=== PATIENT | male | born 1975 | race Caucasian/White ===

== ENCOUNTER 2021-09-12 14:01 | Inpatient (IN) ==
[2021-09-12] MEDS ORDERED: LABETALOL HCL IV 5 MG/ML 20ML IV STA ×3 (14:25→18:01)
--- NOTE | 2021-09-12 14:29 | Emergency Department Note ---
Impression & Plan Hematuria, Headache ADMIT ED Provider Note HPI: The patient is a 46-year-old gentleman who presents the emergency department with a chief complaint of dark urine. Patient states over the past 4 days he has had some dark urine and at times he has passed blood clots. Patient states he is also had a headache during this time, he states when he woke up this morning his headache was worse than it had been over the previous several days and was somewhat throbbing in nature. Patient states his headache is improved from this morning on arrival. Patient denies any fevers. Patient states he has not had any abdominal pain. Patient states that yesterday he did have several hours of left testicle pain that seem to come and go without any exacerbating or relieving factors. Patient states he does not have this pain on presentation today. On arrival the patient is hypertensive >220 SBP, heart rate is within normal limits, he is afebrile, patient denies any chest pain or shortness of breath, he is otherwise in no acute distress on my initial assessment. ROS: -: Hematuria, L testicle pain *10 point review systems was conducted and is otherwise negative unless stated above *Outpatient medications and allergy history reviewed PE: General: Alert, NAD HEENT: Normocephalic, atraumatic Eyes: Extraocular eye movement is intact, no scleral erythema Pulmonary: Clear to auscultation bilaterally, no wheezing Cardio: Regular rate and rhythm GI: Abdomen is soft, nontender : No suprapubic tenderness, there is no swelling of either testicle, external genitalia otherwise appear unremarkable without any lesions or ulcers MSK: No evidence of trauma or malformation of the extremities, no edema Skin: No evidence of rash Neuro: Alert, no focal deficits Psychiatric: Cooperative project manager interior design: - An order was placed for continuous cardiac monitoring - Patient was noted to be in sinus rhythm with rate of 90 EKG: Rate: 69 Rhythm: Normal sinus rhythm Intervals: Within normal limits ST changes: No ST elevation Time: 1830 Medical Decision Making: Patient presented to the emergency department with multiple issues, he states over the past several days he has had some blood in his urine, patient also states that he has had a headache during the same period of time. On arrival here to the ED the patient is noted to be significantly hypertensive with systolic blood pressures in the 230s, he denies any chest pain or shortness of breath, states he does have a mild headache but is improved from the morning, he otherwise appears in no acute distress. IV was established, lab work obtained, patient was placed on freezer unloader, patient did not have much improvement in his hypertension with IV labetalol or IV hydralazine. Lab work was obtained that does not show any evidence of acute kidney injury, patient's troponin was obtained secondary to his hypertension despite the fact that he is not having any chest pain or shortness of breath and this is elevated at 75. On my reassessment the patient states his headache is improved following Reglan and Benadryl, CT angio of the head does not show any evidence of intracranial bleeding, no evidence of aneurysm. CT imaging of the abdomen pelvis was obtained for the patient's hematuria and does show some bladder wall thickening but no evidence of any obstruction or hydronephrosis. Patient was ordered a dose of Keflex here in the ED. Given the patient's ongoing hypertension and elevated troponin he was eventually placed on a nicardipine drip as his blood pressure remained elevated at 212/149 on reassessment. He states his headache is improved and overall he is generally asymptomatic however his pressures remain elevated and his troponin is high constituting admission for hypertensive emergency. Patient was in agreement to this plan. Nicardipine drip was ordered. [facility] hospitalist service was consulted for admission and the patient was admitted in stable condition. * CRITICAL CARE TIME: ( 65 ) minutes -Treatment for hypertensive emergency requiring IV nicardipine for elevated blood pressures greater than 230 systolic and elevated troponin/evidence of end- organ damage, interpretation of diagnostic studies and EKG, arrangement of admission Diagnosis: 1. Hypertensive emergency 2. Elevated troponin 3. Headache, nonspecific, non-intractable 4. Hematuria 5. Left testicle pain, transient Disposition: Admission Bk Garcia DO Emergency Medicine Past Med/Surg History Social History Smoking Status: Never smoker Feels Safe at Home: Yes Home Meds Home Medications Medication Instructions Recorded Confirmed amlodipine 10 mg tablet 10 mg PO DAILY 09/12/21 09/12/21 metoprolol succinate 100 mg 100 mg PO DAILY 09/12/21 09/12/21 tablet,extended release 24 hr Previous Rx's Medication Instructions Recorded cephalexin 500 mg capsule 500 mg PO BID 7 days #14 caps 09/12/21 Results & Data (ED) Vital Signs Vital Signs - 24 hr 09/12/21 14:15 09/12/21 15:31 09/12/21 15:44 Temperature 36.5 C Temperature Source Temporal Artery Scan Pulse Rate 91 H Pulse Rate [Apical] 79 Pulse Rate from SpO2 Sensor Pulse Rhythm [Apical] Regular Pulse Strength [Apical] Normal Respiratory Rate 15 18 Respiratory Effort / Characteristics Non-Labored Respiratory Depth Normal Respiratory Pattern Blood Pressure 220/161 H Blood Pressure [Right Arm] 227/149 H 230/69 H Blood Pressure Mean 180 Blood Pressure Mean [Right Arm] 175 122 Blood Pressure Position [Right Arm] Pulse Oximetry 98 98 Oxygen Delivery Method Room Air Room Air Sepsis Recent Fever Within 48 Hours No Sepsis New/Unexplained Change in Mental Status No Sepsis Action Taken by Nursing No Action Required 09/12/21 17:27 09/12/21 17:27 09/12/21 18:00 Temperature Temperature Source Pulse Rate 69 Pulse Rate [Apical] 69 67 Pulse Rate from SpO2 Sensor Pulse Rhythm [Apical] Regular Pulse Strength [Apical] Normal Respiratory Rate 18 18 20 Respiratory Effort / Characteristics Non-Labored Non-Labored Respiratory Depth Normal Normal Respiratory Pattern Regular Blood Pressure Blood Pressure [Right Arm] 229/169 H 231/144 H Blood Pressure Mean Blood Pressure Mean [Right Arm] 189 173 Blood Pressure Position [Right Arm] Lying Lying Pulse Oximetry 97 97 97 Oxygen Delivery Method Room Air Room Air Room Air Sepsis Recent Fever Within 48 Hours Sepsis New/Unexplained Change in Mental Status Sepsis Action Taken by Nursing 09/12/21 15:00 09/12/21 15:10 09/12/21 15:20 Temperature Temperature Source Pulse Rate 95 H 93 H 87 Pulse Rate [Apical] Pulse Rate from SpO2 Sensor 96 H 94 H Pulse Rhythm [Apical] Pulse Strength [Apical] Respiratory Rate 23 20 23 Respiratory Effort / Characteristics Respiratory Depth Respiratory Pattern Blood Pressure Blood Pressure [Right Arm] Blood Pressure Mean Blood Pressure Mean [Right Arm] Blood Pressure Position [Right Arm] Pulse Oximetry 99 94 Oxygen Delivery Method Sepsis Recent Fever Within 48 Hours Sepsis New/Unexplained Change in Mental Status Sepsis Action Taken by Nursing 09/12/21 15:41 09/12/21 15:41 09/12/21 15:42 Temperature Temperature Source Pulse Rate 82 Pulse Rate [Apical] Pulse Rate from SpO2 Sensor 82 Pulse Rhythm [Apical] Pulse Strength [Apical] Respiratory Rate 24 Respiratory Effort / Characteristics Respiratory Depth Respiratory Pattern Blood Pressure 230/169 H 229/161 H Blood Pressure [Right Arm] Blood Pressure Mean 189 183 Blood Pressure Mean [Right Arm] Blood Pressure Position [Right Arm] Pulse Oximetry 98 Oxygen Delivery Method Sepsis Recent Fever Within 48 Hours Sepsis New/Unexplained Change in Mental Status Sepsis Action Taken by Nursing 09/12/21 15:42 09/12/21 15:50 09/12/21 15:50 Temperature Temperature Source Pulse Rate 81 81 Pulse Rate [Apical] Pulse Rate from SpO2 Sensor 81 81 Pulse Rhythm [Apical] Pulse Strength [Apical] Respiratory Rate 25 H 23 Respiratory Effort / Characteristics Respiratory Depth Respiratory Pattern Blood Pressure 220/158 H Blood Pressure [Right Arm] Blood Pressure Mean 178 Blood Pressure Mean [Right Arm] Blood Pressure Position [Right Arm] Pulse Oximetry 98 97 Oxygen Delivery Method Sepsis Recent Fever Within 48 Hours Sepsis New/Unexplained Change in Mental Status Sepsis Action Taken by Nursing 09/12/21 16:00 09/12/21 16:10 09/12/21 16:10 Temperature Temperature Source Pulse Rate 72 73 Pulse Rate [Apical] Pulse Rate from SpO2 Sensor 73 74 Pulse Rhythm [Apical] Pulse Strength [Apical] Respiratory Rate 19 20 Respiratory Effort / Characteristics Respiratory Depth Respiratory Pattern Blood Pressure 223/159 H Blood Pressure [Right Arm] Blood Pressure Mean 180 Blood Pressure Mean [Right Arm] Blood Pressure Position [Right Arm] Pulse Oximetry 97 97 Oxygen Delivery Method Sepsis Recent Fever Within 48 Hours Sepsis New/Unexplained Change in Mental Status Sepsis Action Taken by Nursing 09/12/21 16:20 09/12/21 16:20 09/12/21 16:30 Temperature Temperature Source Pulse Rate 78 Pulse Rate [Apical] Pulse Rate from SpO2 Sensor 78 Pulse Rhythm [Apical] Pulse Strength [Apical] Respiratory Rate 21 Respiratory Effort / Characteristics Respiratory Depth Respiratory Pattern Blood Pressure 223/169 H 218/148 H Blood Pressure [Right Arm] Blood Pressure Mean 187 171 Blood Pressure Mean [Right Arm] Blood Pressure Position [Right Arm] Pulse Oximetry 97 Oxygen Delivery Method Sepsis Recent Fever Within 48 Hours Sepsis New/Unexplained Change in Mental Status Sepsis Action Taken by Nursing 09/12/21 16:30 09/12/21 17:18 09/12/21 17:19 Temperature Temperature Source Pulse Rate 75 79 77 Pulse Rate [Apical] Pulse Rate from SpO2 Sensor 75 78 Pulse Rhythm [Apical] Pulse Strength [Apical] Respiratory Rate 17 28 H 25 H Respiratory Effort / Characteristics Respiratory Depth Respiratory Pattern Blood Pressure Blood Pressure [Right Arm] Blood Pressure Mean Blood Pressure Mean [Right Arm] Blood Pressure Position [Right Arm] Pulse Oximetry 95 95 Oxygen Delivery Method Sepsis Recent Fever Within 48 Hours Sepsis New/Unexplained Change in Mental Status Sepsis Action Taken by Nursing 09/12/21 17:19 09/12/21 17:20 09/12/21 17:30 Temperature Temperature Source Pulse Rate 78 71 Pulse Rate [Apical] Pulse Rate from SpO2 Sensor 78 72 Pulse Rhythm [Apical] Pulse Strength [Apical] Respiratory Rate 21 21 Respiratory Effort / Characteristics Respiratory Depth Respiratory Pattern Blood Pressure 229/169 H Blood Pressure [Right Arm] Blood Pressure Mean 189 Blood Pressure Mean [Right Arm] Blood Pressure Position [Right Arm] Pulse Oximetry 97 96 Oxygen Delivery Method Sepsis Recent Fever Within 48 Hours Sepsis New/Unexplained Change in Mental Status Sepsis Action Taken by Nursing 09/12/21 17:40 09/12/21 17:45 09/12/21 17:45 Temperature Temperature Source Pulse Rate 69 72 Pulse Rate [Apical] Pulse Rate from SpO2 Sensor 66 73 Pulse Rhythm [Apical] Pulse Strength [Apical] Respiratory Rate 18 17 Respiratory Effort / Characteristics Respiratory Depth Respiratory Pattern Blood Pressure 246/140 H Blood Pressure [Right Arm] Blood Pressure Mean 175 Blood Pressure Mean [Right Arm] Blood Pressure Position [Right Arm] Pulse Oximetry 98 97 Oxygen Delivery Method Sepsis Recent Fever Within 48 Hours Sepsis New/Unexplained Change in Mental Status Sepsis Action Taken by Nursing 09/12/21 17:50 09/12/21 18:00 09/12/21 18:00 Temperature Temperature Source Pulse Rate 63 74 Pulse Rate [Apical] Pulse Rate from SpO2 Sensor 69 Pulse Rhythm [Apical] Pulse Strength [Apical] Respiratory Rate 19 21 Respiratory Effort / Characteristics Respiratory Depth Respiratory Pattern Blood Pressure 217/141 H Blood Pressure [Right Arm] Blood Pressure Mean 166 Blood Pressure Mean [Right Arm] Blood Pressure Position [Right Arm] Pulse Oximetry 87 L Oxygen Delivery Method Sepsis Recent Fever Within 48 Hours Sepsis New/Unexplained Change in Mental Status Sepsis Action Taken by Nursing 09/12/21 18:10 09/12/21 18:15 09/12/21 18:15 Temperature Temperature Source Pulse Rate 62 77 Pulse Rate [Apical] Pulse Rate from SpO2 Sensor Pulse Rhythm [Apical] Pulse Strength [Apical] Respiratory Rate 16 12 Respiratory Effort / Characteristics Respiratory Depth Respiratory Pattern Blood Pressure 231/144 H Blood Pressure [Right Arm] Blood Pressure Mean 173 Blood Pressure Mean [Right Arm] Blood Pressure Position [Right Arm] Pulse Oximetry Oxygen Delivery Method Sepsis Recent Fever Within 48 Hours Sepsis New/Unexplained Change in Mental Status Sepsis Action Taken by Nursing 09/12/21 18:20 09/12/21 18:30 09/12/21 18:30 Temperature Temperature Source Pulse Rate 73 67 Pulse Rate [Apical] Pulse Rate from SpO2 Sensor 71 Pulse Rhythm [Apical] Pulse Strength [Apical] Respiratory Rate 14 22 Respiratory Effort / Characteristics Respiratory Depth Respiratory Pattern Blood Pressure 203/144 H Blood Pressure [Right Arm] Blood Pressure Mean 163 Blood Pressure Mean [Right Arm] Blood Pressure Position [Right Arm] Pulse Oximetry 97 Oxygen Delivery Method Sepsis Recent Fever Within 48 Hours Sepsis New/Unexplained Change in Mental Status Sepsis Action Taken by Nursing 09/12/21 18:40 09/12/21 18:45 09/12/21 18:45 Temperature Temperature Source Pulse Rate 72 82 Pulse Rate [Apical] Pulse Rate from SpO2 Sensor 69 Pulse Rhythm [Apical] Pulse Strength [Apical] Respiratory Rate 16 15 Respiratory Effort / Characteristics Respiratory Depth Respiratory Pattern Blood Pressure 211/149 H Blood Pressure [Right Arm] Blood Pressure Mean 169 Blood Pressure Mean [Right Arm] Blood Pressure Position [Right Arm] Pulse Oximetry 96 Oxygen Delivery Method Sepsis Recent Fever Within 48 Hours Sepsis New/Unexplained Change in Mental Status Sepsis Action Taken by Nursing 09/12/21 18:50 09/12/21 19:00 09/12/21 19:00 Temperature Temperature Source Pulse Rate 61 73 Pulse Rate [Apical] Pulse Rate from SpO2 Sensor 62 Pulse Rhythm [Apical] Pulse Strength [Apical] Respiratory Rate 18 18 Respiratory Effort / Characteristics Respiratory Depth Respiratory Pattern Blood Pressure 217/149 H Blood Pressure [Right Arm] Blood Pressure Mean 171 Blood Pressure Mean [Right Arm] Blood Pressure Position [Right Arm] Pulse Oximetry 99 Oxygen Delivery Method Sepsis Recent Fever Within 48 Hours Sepsis New/Unexplained Change in Mental Status Sepsis Action Taken by Nursing 09/12/21 19:10 09/12/21 19:15 09/12/21 19:15 Temperature Temperature Source Pulse Rate 65 68 Pulse Rate [Apical] Pulse Rate from SpO2 Sensor Pulse Rhythm [Apical] Pulse Strength [Apical] Respiratory Rate 17 11 L Respiratory Effort / Characteristics Respiratory Depth Respiratory Pattern Blood Pressure 210/149 H Blood Pressure [Right Arm] Blood Pressure Mean 169 Blood Pressure Mean [Right Arm] Blood Pressure Position [Right Arm] Pulse Oximetry Oxygen Delivery Method Sepsis Recent Fever Within 48 Hours Sepsis New/Unexplained Change in Mental Status Sepsis Action Taken by Nursing 09/12/21 19:20 09/12/21 19:20 Temperature Temperature Source Pulse Rate 71 Pulse Rate [Apical] Pulse Rate from SpO2 Sensor Pulse Rhythm [Apical] Pulse Strength [Apical] Respiratory Rate 20 Respiratory Effort / Characteristics Respiratory Depth Respiratory Pattern Blood Pressure 212/149 H Blood Pressure [Right Arm] Blood Pressure Mean 170 Blood Pressure Mean [Right Arm] Blood Pressure Position [Right Arm] Pulse Oximetry Oxygen Delivery Method Sepsis Recent Fever Within 48 Hours Sepsis New/Unexplained Change in Mental Status Sepsis Action Taken by Nursing Laboratory Data Result diagrams: 09/12/21 15:15 09/12/21 15:15 Lab Results 09/12/21 09/12/21 09/12/21 Range/Units 15:15 15:15 15:15 WBC 9.96 (4.8-10.8) K/ul RBC 5.75 (4.63-6.08) M/uL Hgb 15.7 (14.0-18.0) g/dl Hct 46.8 (40.1-51.0) % MCV 81.4 (80.0-100.0) fL MCH 27.3 (25.0-34.0) pg MCHC 33.5 (32.0-36.0) g/dL RDW Std Deviation 40.9 (36.4-46.3) fL RDW Coeff of Ish 14.2 (11.5-14.5) % Plt Count 210 (130-400) K/uL MPV 9.9 (9.4-12.4) fL Immature Gran % (Auto) 0.3 % Neut % (Auto) 68.2 % Lymph % (Auto) 23.1 % [place] % (Auto) 6.0 % Eos % (Auto) 1.9 % Baso % (Auto) 0.5 % Neut # (Auto) 6.79 H (1.4-6.5) K/uL Lymph # (Auto) 2.30 (1.2-3.4) K/uL [place] # (Auto) 0.60 (0.24-0.82) K/uL Eos # (Auto) 0.19 (0-0.50) K/uL Baso # (Auto) 0.05 (0-0.2) K/uL Immature Gran # (Auto) 0.03 H (0.00-0.02) K/uL Sodium 137 (136-145) mmol/L Potassium 3.2 L (3.5-5.1) mmol/L Chloride 101 (98-107) mmol/L Carbon Dioxide 30 (21-32) mmol/L Anion Gap 6 (3-11) BUN 9 (6-23) mg/dl Creatinine 0.80 (0.6-1.4) mg/dl Est Cr Clr Drug Dosing 159.8 ml/min Est GFR ( Amer) 122.4 ml/min Est GFR (Non-Af Amer) 105.6 ml/min BUN/Creatinine Ratio 11.3 (10-20) Glucose 149 H (70-99(Fasting)) mg/dl Calcium 8.7 (8.5-10.1) mg/dl Total Bilirubin 0.6 (0.2-1.0) mg/dl AST 17 (13-39) U/L ALT 15 (7-52) U/L Alkaline Phosphatase 92 (34-104) U/L Troponin I High Sens 75.7 H* (0-20) pg/ml Total Protein 7.4 (6.0-8.3) gm/dl Albumin 3.9 (3.4-5.0) gm/dl Globulin 3.5 (2.5-4.0) gm/dl Albumin/Globulin Ratio 1.1 (0.9-2) Lipase 31 (11-82) U/L Urine Color Urine Appearance (Clear) Urine pH (4.5-7.5) Ur Specific [place] (1.000-1.030) Urine Protein (Negative) Urine Glucose (UA) (Negative) Urine Ketones (Negative) Urine Blood (Negative) Urine Nitrite (Negative) Urine Bilirubin (Negative) Urine Urobilinogen (Negative) Ur Leukocyte Esterase (Negative) Urine WBC (Auto) (0-5) /hpf Urine RBC (Auto) (0-4) /hpf U Hyaline Cast (Auto) (0-5) /lpf U Epithel Cells (Auto) (0-5) /lpf Urine Bacteria (Auto) (Negative) 09/12/21 Range/Units 15:25 WBC (4.8-10.8) K/ul RBC (4.63-6.08) M/uL Hgb (14.0-18.0) g/dl Hct (40.1-51.0) % MCV (80.0-100.0) fL MCH (25.0-34.0) pg MCHC (32.0-36.0) g/dL RDW Std Deviation (36.4-46.3) fL RDW Coeff of Ish (11.5-14.5) % Plt Count (130-400) K/uL MPV (9.4-12.4) fL Immature Gran % (Auto) % Neut % (Auto) % Lymph % (Auto) % [place] % (Auto) % Eos % (Auto) % Baso % (Auto) % Neut # (Auto) (1.4-6.5) K/uL Lymph # (Auto) (1.2-3.4) K/uL [place] # (Auto) (0.24-0.82) K/uL Eos # (Auto) (0-0.50) K/uL Baso # (Auto) (0-0.2) K/uL Immature Gran # (Auto) (0.00-0.02) K/uL Sodium (136-145) mmol/L Potassium (3.5-5.1) mmol/L Chloride (98-107) mmol/L Carbon Dioxide (21-32) mmol/L Anion Gap (3-11) BUN (6-23) mg/dl Creatinine (0.6-1.4) mg/dl Est Cr Clr Drug Dosing ml/min Est GFR ( Amer) ml/min Est GFR (Non-Af Amer) ml/min BUN/Creatinine Ratio (10-20) Glucose (70-99(Fasting)) mg/dl Calcium (8.5-10.1) mg/dl Total Bilirubin (0.2-1.0) mg/dl AST (13-39) U/L ALT (7-52) U/L Alkaline Phosphatase (34-104) U/L Troponin I High Sens (0-20) pg/ml Total Protein (6.0-8.3) gm/dl Albumin (3.4-5.0) gm/dl Globulin (2.5-4.0) gm/dl Albumin/Globulin Ratio (0.9-2) Lipase (11-82) U/L Urine Color [place] Urine Appearance Clear (Clear) Urine pH 6.5 (4.5-7.5) Ur Specific [place] 1.007 (1.000-1.030) Urine Protein 2+ H (Negative) Urine Glucose (UA) Negative (Negative) Urine Ketones Negative (Negative) Urine Blood 3+ H (Negative) Urine Nitrite Negative (Negative) Urine Bilirubin Negative (Negative) Urine Urobilinogen Negative (Negative) Ur Leukocyte Esterase Trace H (Negative) Urine WBC (Auto) 1-5 (0-5) /hpf Urine RBC (Auto) >30 H (0-4) /hpf U Hyaline Cast (Auto) 1-5 (0-5) /lpf U Epithel Cells (Auto) 5-10 H (0-5) /lpf Urine Bacteria (Auto) Negative (Negative) Administered Medications Nicardipine HCl 25 mg/ Sodium (Chloride) 250 mls @ 50 mls/hr IV .Q5H [facility]; Protocol Stop: 10/12/21 18:59 Last Admin: 09/12/21 19:16 Dose: 5 mg/hr, 50 mls/hr Documented By: CLAUDIA Co-signed By: Discontinued Medications Diphenhydramine HCl (Diphenhydramine 50 Mg/Ml Vial) 25 mg IV NOW STA Stop: 09/12/21 16:22 Last Admin: 09/12/21 17:20 Dose: 25 mg Documented By: ROZ Hydralazine HCl (Hydralazine Hcl 20 Mg/Ml Vial) 10 mg IV NOW STA Stop: 09/12/21 16:32 Last Admin: 09/12/21 17:24 Dose: 10 mg Documented By: ROZ Sodium Chloride (Nss 1000ml) 500 mls @ 999 mls/hr IV .Q31M ONE Stop: 09/12/21 16:52 Last Infusion: 09/12/21 18:09 Dose: 0 mls/hr Documented By: Admin: 09/12/21 17:24 Dose: 999 mls/hr Documented By: ROZ Ioversol (Optiray 320 125ml) 118 ml IV ONCE ONE Stop: 09/12/21 16:54 Last Admin: 09/12/21 16:57 Dose: 118 ml Documented By: YG Labetalol HCl (Labetalol Hcl Iv 5 Mg/Ml 20ml) 10 mg IV NOW STA Stop: 09/12/21 14:26 Last Admin: 09/12/21 15:29 Dose: 10 mg Documented By: ASW Co-signed By: GRAHAM Labetalol HCl (Labetalol Hcl Iv 5 Mg/Ml 20ml) 10 mg IV NOW STA Stop: 09/12/21 16:05 Last Admin: 09/12/21 16:08 Dose: Not Given Documented By: ROZ Labetalol HCl (Labetalol Hcl Iv 5 Mg/Ml 20ml) 10 mg IV NOW STA Stop: 09/12/21 18:02 Last Admin: 09/12/21 18:17 Dose: 10 mg Documented By: ROZ Co-signed By: GRAHAM Metoclopramide HCl (Metoclopramide Hcl Inj 5 Mg/Ml 2 Ml Vial) 10 mg IV NOW STA Stop: 09/12/21 16:22 Last Admin: 09/12/21 17:22 Dose: 10 mg Documented By: ROZ Potassium Chloride (Potassium Chloride Crtab 20 Meq Tabcr) 40 meq PO NOW STA Stop: 09/12/21 18:07 Last Admin: 09/12/21 18:18 Dose: 40 meq Documented By: ROZ Imaging Data Radiologist's Impression: Abdomen/Pelvis CT 09/12/21 14:25 CT SCAN OF THE ABDOMEN AND PELVIS WITHOUT IV CONTRAST CLINICAL HISTORY: Hematuria. COMPARISON STUDY: No priors. TECHNIQUE: CT scan of the abdomen and pelvis is performed from the lung bases to the proximal femora. Images are reviewed in the axial, sagittal, and coronal planes. IV contrast was not administered for this examination. A dose lowering technique was utilized adhering to the principles of ALARA. CT DOSE: 1638.60 mGy.cm FINDINGS: Lung bases: The heart is normal in size and without pericardial effusion. There are small bilateral fat-containing Bochdalek hernias. The lung bases are clear. There is a small hiatal hernia. Liver: The unenhanced liver is top normal in size and demonstrates diffusely diminished attenuation indicating steatosis. Fatty sparing is seen adjacent to gallbladder fossa. There is no intrahepatic biliary ductal dilatation. Gallbladder: Unremarkable. Spleen: The spleen is enlarged measuring 15.6 cm in length. A 2.7 cm peripherally calcified cyst is noted in the anterior spleen. Pancreas: Unremarkable. Adrenal glands: Unremarkable. Kidneys: The unenhanced kidneys are normal in size and without hydronephrosis. There are no renal calculi identified. There is no evidence of contour deforming renal mass lesion. Abdominal vasculature: The abdominal aorta is normal in course and caliber. Bowel: There is no bowel obstruction. Mild fecal retention is seen throughout the colon. The appendix is well-visualized and normal. Peritoneum: There is no intraperitoneal free air or abdominal ascites. There is a small fat-containing umbilical hernia. Lymphadenopathy: None. Pelvic viscera: The bladder is decompressed and appears circumferentially thick walled. The prostate and seminal vesicles are normal as visualized. Skeletal structures: No lytic or blastic lesions are seen. Mild degenerative change is noted in the sacroiliac joints. There is a posterior disc osteophyte complex at L5-S1. IMPRESSION: 1. The bladder is decompressed and appears circumferentially thick walled. Correlate with clinical findings and urinalysis. 2. Mild hepatic steatosis. 3. Splenomegaly. 4. No renal calculi are identified. 5. Additional findings as above. Noted in the sacroiliac joints. ACT 112: Negative or not required by law. Electronically signed by: Zacarias Pike M.D. 09/12/2021 3:53 PM Scrotum Ultrasound 09/12/21 14:26 ULTRASOUND TESTES AND SCROTUM CLINICAL HISTORY: Left testicular pain COMPARISON STUDY: No priors. TECHNIQUE: Real-time, grayscale, and color Doppler sonography of the testes and scrotum is performed. Images are reviewed in the transverse and longitudinal planes. FINDINGS: The testes are normal in size and homogeneous in echotexture. The right testis measures 3.9 x 2.2 x 2.7 cm and the left testis measures 4.0 x 2.1 x 2.9 cm. A tiny calcification of the tunica is incidentally noted on the right. No intratesticular mass is seen. Testicular blood flow is normal and symmetric. Normal Doppler waveforms are identified in both testes. The epididymal heads are normal in appearance. The right epididymal head measures 1.3 cm in length and the left epididymal head measures 1.1 cm in length. There are trace bilateral hydroceles. No varicocele is seen. IMPRESSION: 1. Unremarkable sonographic examination of the testes. 2. Trace bilateral hydroceles. ACT 112: Negative or not required by law. Electronically signed by: Zacarias Pike M.D. 09/12/2021 5:18 PM Head CTA 09/12/21 16:45 CT ANGIOGRAM OF THE BRAIN COMBO CLINICAL HISTORY: Headache COMPARISON STUDY: No priors. TECHNIQUE: Unenhanced axial CT scan of the brain is performed. Subsequently, following the IV administration of 118 cc of Optiray 320, CT angiogram of the brain was performed from the skull base to the vertex. Images are reviewed in the axial, sagittal, and coronal planes. 3-D MIPS images are created and assessed. IV contrast was administered without complication. A dose lowering technique was utilized adhering to the principles of ALARA. CT DOSE: 673.96 mGy.cm FINDINGS: Brain parenchyma: Scattered hypoattenuating foci throughout the white matter likely represent microangiopathic change. There is no hemorrhage, mass effect, or evidence of acute territorial ischemia by CT criteria. There is no evidence of enhancing mass lesion on the angiogram phase images. No extra-axial fluid collection is seen. [place]-white matter differentiation is preserved. Ventricles, sulci, and cisterns: Normal in configuration. CT angiogram of the brain: The [place] is developmentally complete. The internal carotid arteries are widely patent, as are the anterior and middle cerebral arteries. The vertebrobasilar system and posterior cerebral arteries are widely patent. The left vertebral artery is dominant. The right vertebral artery is diminutive. There is no aneurysm, high-grade stenosis, or focal vessel cutoff identified throughout the intracranial circulation. Dural sinuses: Clear as visualized. Orbits: The bony orbits are intact. The orbital contents are normal as visualized. Sinuses and mastoids: There is subtotal opacification of the right sphenoid sinus which may represent a large retention cyst. A 1.5 cm retention cyst is noted in the left maxillary antrum. There is trace mucosal thickening in the right maxillary sinus. The mastoid air cells are well pneumatized. Calvarium: Unremarkable. IMPRESSION: 1 There is no hemorrhage, mass effect, or evidence of acute territorial ischemia by CT criteria. 2. Scattered hypoattenuating foci throughout the white matter likely represent age advanced microangiopathic change. Clinical correlation will be required. 3. Unremarkable CT angiogram of the brain. ACT 112: Negative or not required by law. Electronically signed by: Zacarias Pike M.D. 09/12/2021 5:16 PM Discharge Plan Visit Data Chief Complaint: Hematuria Stated Complaint: BLOOD IN URINE, Headache ED Provider: Bk Garcia Discharge Problem: Hematuria, Headache Patient Disposition: Home - Self-Care Condition: Good Discharge Instructions Fabio/Other Patient Handouts: ED Headache, Tension, ED Hematuria Activity Restrictions/Additional Instructions: Please follow-up with your primary care doctor in 2 to 3 days for reevaluation. Please follow-up with urology as advised within the next 3 to 5 days. Please return immediately to the emergency department if you have any new or worsening symptoms. Please take your antibiotics as prescribed. Forms Stand Alone Forms: My [facility], [facility] Emergency Department, Important Visit Information Prescriptions Prescriptions: New cephalexin 500 mg capsule 500 mg PO BID 7 Days Qty: 14 0RF No Action metoprolol succinate 100 mg tablet extended release 24 hr 100 mg PO DAILY amlodipine 10 mg tablet 10 mg PO DAILY Referrals Referrals: Chi Chowdhury MD [Physician] - PCP,NO [Primary Care Provider] - : Hematuria Qualifiers: Hematuria type: unspecified type Qualified Code(s): R31.9 - Hematuria, unspecified Headache Qualifiers: Headache type: unspecified Headache chronicity pattern: unspecified pattern Intractability: not intractable Qualified Code(s): R51.9 - Headache, unspecified
[2021-09-12 15:34] LABS: Basophils # (auto) 0.05 K/uL (0-0.2); Basophils % (auto) 0.5 %; Eosinophils # (auto) 0.19 K/uL (0-0.50); Eosinophils % (auto) 1.9 %; Hematocrit (blood only) 46.8 % (40.1-51.0); Hemoglobin 15.7 g/dl (14.0-18.0); Immature Granulocytes # (auto) 0.03 K/uL (0.00-0.02); Immature Granulocytes % (auto) 0.3 %; Lymphocytes % (auto) 23.1 %; Mean Corpuscular Hemoglobin 27.3 pg (25.0-34.0); Mean Corpuscular Hgb Conc 33.5 g/dL (32.0-36.0); Mean Corpuscular Volume 81.4 fL (80.0-100.0); Mean Platelet Volume 9.9 fL (9.4-12.4); Neutrophils # (auto) 6.79 K/uL (1.4-6.5); Neutrophils % (auto) 68.2 %; Platelet Count 210 K/uL (130-400); RDW Coefficient of Variation 14.2 % (11.5-14.5); RDW Standard Deviation 40.9 fL (36.4-46.3); Red Blood Count 5.75 M/uL (4.63-6.08); White Blood Count 9.96 K/ul (4.8-10.8)
[2021-09-12 15:38] LABS: Appearance Urine Clear (Clear); Bacteria Urine Automated Negative (Negative); Bilirubin Urine Negative (Negative); Blood Urine 3+ (Negative); Color Urine Orange; Glucose Urine UA Negative (Negative); Ketones Urine Negative (Negative); Leukocyte Esterase Urine Trace (Negative); Nitrite Urine Negative (Negative); Protein Urine 2+ (Negative); RBC Urine Automated >30 /hpf (0-4); Specific Gravity Urine 1.007 (1.000-1.030); Urobilinogen Urine Negative (Negative); pH Urine 6.5 (4.5-7.5)
[2021-09-12 15:53] LABS: Albumin Globulin Ratio 1.1 (0.9-2); Albumin Level 3.9 gm/dl (3.4-5.0); BUN Creatinine Ratio 11.3 (10-20); Bilirubin,Total 0.6 mg/dl (0.2-1.0); Calcium 8.7 mg/dl (8.5-10.1); Creatinine Clr Calc Pharmacy 159.8 ml/min; Est GFR (African American) 122.4 ml/min; Est GFR (Non-African American) 105.6 ml/min; Globulin 3.5 gm/dl (2.5-4.0); Potassium 3.2 mmol/L (3.5-5.1); Total Protein 7.4 gm/dl (6.0-8.3)
--- NOTE | 2021-09-12 15:55 | CT Scan Report ---
CT SCAN OF THE ABDOMEN AND PELVIS WITHOUT IV CONTRAST CLINICAL HISTORY: Hematuria. COMPARISON STUDY: No priors. TECHNIQUE: CT scan of the abdomen and pelvis is performed from the lung bases to the proximal femora. Images are reviewed in the axial, sagittal, and coronal planes. IV contrast was not administered for this examination. A dose lowering technique was utilized adhering to the principles of ALARA. CT DOSE: 1638.60 mGy.cm FINDINGS: Lung bases: The heart is normal in size and without pericardial effusion. There are small bilateral f at-containing Bochdalek hernias. The lung bases are clear. There is a small hiatal hernia. Liver: The unenhanced liver is top normal in size and demonstrates diffusely diminished attenuation i ndicating steatosis. Fatty sparing is seen adjacent to gallbladder fossa. There is no intrahepatic bi liary ductal dilatation. Gallbladder: Unremarkable. Spleen: The spleen is enlarged measuring 15.6 cm in length. A 2.7 cm peripherally calcified cyst is n oted in the anterior spleen. Pancreas: Unremarkable. Adrenal glands: Unremarkable. Kidneys: The unenhanced kidneys are normal in size and without hydronephrosis. There are no renal rosa isela culi identified. There is no evidence of contour deforming renal mass lesion. Abdominal vasculature: The abdominal aorta is normal in course and caliber. Bowel: There is no bowel obstruction. Mild fecal retention is seen throughout the colon. The appendix is well-visualized and normal. Peritoneum: There is no intraperitoneal free air or abdominal ascites. There is a small fat-containin g umbilical hernia. Lymphadenopathy: None. Pelvic viscera: The bladder is decompressed and appears circumferentially thick walled. The prostate and seminal vesicles are normal as visualized. Skeletal structures: No lytic or blastic lesions are seen. Mild degenerative change is noted in the s acroiliac joints. There is a posterior disc osteophyte complex at L5-S1. IMPRESSION: 1. The bladder is decompressed and appears circumferentially thick walled. Correlate with clinical fi ndings and urinalysis. 2. Mild hepatic steatosis. 3. Splenomegaly. 4. No renal calculi are identified. 5. Additional findings as above. Noted in the sacroiliac joints. ACT 112: Negative or not required by law. Electronically signed by: Zacarias Pike M.D. 09/12/2021 3:53 PM
[2021-09-12] MEDS ORDERED: METOCLOPRAMIDE HCL INJ 5 MG/ML 2 ML VIAL IV STA (16:21)
[2021-09-12] MEDS ORDERED: diphenhydrAMINE 50 MG/ML VIAL IV STA (16:21)
[2021-09-12] MEDS ORDERED: SODIUM CHLORIDE 0.9% 1000ML 500 ML IV ONE (16:22)
[2021-09-12] MEDS ORDERED: hydrALAZINE HCL 20 MG/ML VIAL IV STA (16:31)
[2021-09-12] MEDS ORDERED: OPTIRAY 320 125ml IV ONE (16:53)
--- NOTE | 2021-09-12 17:19 | CT Scan Report ---
CT ANGIOGRAM OF THE BRAIN COMBO CLINICAL HISTORY: Headache COMPARISON STUDY: No priors. TECHNIQUE: Unenhanced axial CT scan of the brain is performed. Subsequently, following the IV adminis tration of 118 cc of Optiray 320, CT angiogram of the brain was performed from the skull base to the vertex. Images are reviewed in the axial, sagittal, and coronal planes. 3-D MIPS images are created a nd assessed. IV contrast was administered without complication. A dose lowering technique was utiliz ed adhering to the principles of ALARA. CT DOSE: 673.96 mGy.cm FINDINGS: Brain parenchyma: Scattered hypoattenuating foci throughout the white matter likely represent microan giopathic change. There is no hemorrhage, mass effect, or evidence of acute territorial ischemia by C T criteria. There is no evidence of enhancing mass lesion on the angiogram phase images. No extra-axi al fluid collection is seen. [place]-white matter differentiation is preserved. Ventricles, sulci, and cisterns: Normal in configuration. CT angiogram of the brain: The [place] is developmentally complete. The internal carotid ar teries are widely patent, as are the anterior and middle cerebral arteries. The vertebrobasilar syste m and posterior cerebral arteries are widely patent. The left vertebral artery is dominant. The right vertebral artery is diminutive. There is no aneurysm, high-grade stenosis, or focal vessel cutoff id entified throughout the intracranial circulation. Dural sinuses: Clear as visualized. Orbits: The bony orbits are intact. The orbital contents are normal as visualized. Sinuses and mastoids: There is subtotal opacification of the right sphenoid sinus which may represent a large retention cyst. A 1.5 cm retention cyst is noted in the left maxillary antrum. There is trac e mucosal thickening in the right maxillary sinus. The mastoid air cells are well pneumatized. Calvarium: Unremarkable. IMPRESSION: 1 There is no hemorrhage, mass effect, or evidence of acute territorial ischemia by CT criteria. 2. Scattered hypoattenuating foci throughout the white matter likely represent age advanced microangi opathic change. Clinical correlation will be required. 3. Unremarkable CT angiogram of the brain. ACT 112: Negative or not required by law. Electronically signed by: Zacarias Pike M.D. 09/12/2021 5:16 PM
--- NOTE | 2021-09-12 17:20 | Ultrasound Report ---
ULTRASOUND TESTES AND SCROTUM CLINICAL HISTORY: Left testicular pain COMPARISON STUDY: No priors. TECHNIQUE: Real-time, grayscale, and color Doppler sonography of the testes and scrotum is performed. Images are reviewed in the transverse and longitudinal planes. FINDINGS: The testes are normal in size and homogeneous in echotexture. The right testis measures 3.9 x 2.2 x 2 .7 cm and the left testis measures 4.0 x 2.1 x 2.9 cm. A tiny calcification of the tunica is incident ally noted on the right. No intratesticular mass is seen. Testicular blood flow is normal and symmetr ic. Normal Doppler waveforms are identified in both testes. The epididymal heads are normal in appearance. The right epididymal head measures 1.3 cm in length an d the left epididymal head measures 1.1 cm in length. There are trace bilateral hydroceles. No varicocele is seen. IMPRESSION: 1. Unremarkable sonographic examination of the testes. 2. Trace bilateral hydroceles. ACT 112: Negative or not required by law. Electronically signed by: Zacarias Pike M.D. 09/12/2021 5:18 PM
[2021-09-12] MEDS ORDERED: POTASSIUM CHLORIDE CRTAB 20 MEQ TABCR PO STA (18:06)
[2021-09-12] MEDS ORDERED: STAT IV Infusion **Titration per Protocol STA (18:54)
[2021-09-12] MEDS ORDERED: niCARdipine 25 MG in SODIUM CHLORIDE 0.9% 240 ML IV SCH (19:00)
--- NOTE | 2021-09-12 19:50 | History & Physical Report ---
Date of Service September 12, 2021 Assessment & Plan (1) Hematuria: Plan: 46yo male with a history of HTN presents with a four-day history of dark urine with occasional blood clots, intermittent headaches, and severe hypertension. Severe hypertension, headache Patient hypertensive on arrival to 200-240s/120-170s with a few-day history of intermittent headache well-controlled with APAP In the ED, patient was given NSS 500mL bolus x1, labetalol 10mg IV x2, hydralazine 10mg IV x1, then started on nicardipine gtt with an improvement in BP to 150s/110s Patient without CP, SOB, or focal neurologic symptoms; CTA head without evidence of hemorrhage or infarct Low suspicion for headache as a manifestation of severely-elevated BP given pain very responsive to APAP Discontinue labeltalol / hydralazine / nicardipine gtt Will give enalapril 1.25mg IV and assess response Continue home amlodipine and metoprolol APAP 1000mg q8h scheduled Hematuria, proteinuria Patient with a four-day history of dark urine with some clot passage, no fever/dysuria/abdominal pain/nausea/vomiting UA notable for 3+ blood, 2+ protein, trace leuk esterase CT abdomen/pelvis notable for decompressed bladder with circumferential wall thickening Urine culture pending, microscopy ordered, spot urine protein ordered Suspect peripheral edema related to amlodipine rather than protein loss given normal serum albumin Will check renin and aldosterone levels Renal doppler ordered Consider urology consult for possible cystoscopy, though would need to achieve better BP control first Consider nephrology consult given gross hematuria with proteinuria, though patient's reported clot passage suggests an extraglomerular source Continue LR@125mL/hr (x2 bags ordered) Trend CBC, BMP Mild hypokalemia Potassium on admission 3.2, possibly related to the above issues; no mag level drawn in ED KCl 40mEq PO x1 given in ED, continue repletion with KCl 20mEq PO bid Check magnesium level, trend daily BMP and mag level Elevated troponin On admission, hsTroponin elevated to 75.7 without CP or overt ischemic change on EKG 6hr repeat value 90.9, still without CP Repeat value not indicated given delta<20 Hepatic steatosis Incidentally found on CT abdomen/pelvis; unlikely related to presenting symptoms Outpatient follow-up recommended FEN: heart healthy diet, LR@125mL/hr (x2 bags ordered) Code status: conditional (YES chest compressions, NO defibrillation/intubation DVT ppx: SCDs Held home meds: none Dispo: PCU (2) Headache: (3) Hypertension: (4) Hypertensive urgency: History of Present Illness Primary Care Provider: NO PCP 46yo male with a history of HTN presents with a four-day history of dark urine with occasional blood clots, intermittent headaches, and severe hypertension. Also reports several hours of left testicle pain yesterday which came and went without clear trigger, but resolved and is not present today. Patient's headache has been on and off for the past four days with moderate pain improved with tylenol. However, this morning, patient had a severe headache behind his left eye, rated an 8/10, which did improve with tylenol. Patient monitors his BP from home and notes his normal BP is around 130/80s; BP has been elevated over the past few days but patient reports the highest SBP he saw was in the 160s. Patient denies pain with urination, urinary hesitancy, and urinary urgency. Does note some increased urinary frequency but attributes this to increased fluid intake since he first noticed dark-tinged urine. Denies changes in vision, CP, SOB, fever, abdominal pain, nausea, vomiting, diarrhea, lightheadedness, dizziness, numbness, tingling, weakness, or other symptoms. Patient is a never-smoker and has no known occupational carcinogen exposure. Patient reports a family history of HTN and a family history of prostate cancer (grandfather, diagnosed at age 63). In the ED, patient was hypertensive to the 200-240s/120-170s. Vitals were otherwise stable. Labs notable for hypokalemia to 3.2, elevated hsTroponin to 75.7 UA notable for 3+ blood, 2+ protein, and trace leuk esterase EKG: NSR with some nonspecific T-wave abnormalities CTA head: no hemorrhage or evidence of acute territorial ischemia; scattered hypoattenuating foci throughout the white matter likely representing age-related microangiopathic change CT abdomen/pelvis: decompressed bladder with circumferential wall thickening, mild hepatic steatosis, splenomegaly, mild sacroiliac joint degenerative change, posterior disc osteophyte complex at L5-S1, no renal calculi identified US scrotum: trace bilateral hydroceles but overall unremarkable sonographic examination of the testes In the ED, patient was given NSS 500mL bolus x1, labetalol 10mg IV x2, hydralazine 10mg IV x1, and was then started on a nicardipine drip. Patient was additionally given KCl 40mEq PO x1. Allergies Allergy/AdvReac Type Severity Reaction Status Date / Time walnut Allergy Difficulty Verified 09/12/21 22:39 Breathing Home Medications Medication Instructions Recorded Confirmed Type amlodipine 10 mg tablet 10 mg PO DAILY 09/12/21 09/12/21 History metoprolol succinate 100 mg 100 mg PO DAILY 09/12/21 09/12/21 History tablet,extended release 24 hr Past Med/Surg History Medical History (Updated 09/13/21 @ 17:14 by Dean Childers MD) Dental infection 2019 treated with cephalexin Hypertension Social History Smoking Status: Never smoker Hx Alcohol Use: Yes Hx Substance Use: No Communication Ability: Effective Beliefs That Will Affect Care: None Current Living Situation: Alone Feels Safe at Home: Yes Physical Exam Physical Exam: Constitutional: well-appearing, no acute distress HEENT: NCAT, no conjunctival injection, MMM CV: regular rhythm, no murmur appreciated, extremities well-perfused, 1+ pitting edema of the LE bilaterally up to the knee Resp: CTABL, no wheezes/rales/rhonchi appreciated, no increased work of breathing GI: soft, nondistended, nontender, BS normoactive MSK: no gross deformities appreciated, no flank tenderness Skin: warm, dry, no rash appreciated Neuro: alert, oriented, CN2-12 grossly intact, strength 5/5 in upper and lower extremities bilaterally, [id number] testing unremarkable, no focal neurologic deficit appreciated Results & Data Results & Data ([facility]) Vital Signs (Past 12 Hours) Vital Signs Temp Pulse Pulse Resp BP BP Pulse Ox 09/12/21 19:20 71 20 09/12/21 19:20 212/149 H 09/12/21 19:15 210/149 H 09/12/21 19:15 68 11 L 09/12/21 19:10 65 17 09/12/21 19:00 73 18 09/12/21 19:00 217/149 H 09/12/21 18:50 61 18 99 09/12/21 18:45 82 15 09/12/21 18:45 211/149 H 07/23/22 18:40 72 16 96 09/12/21 18:30 67 22 09/12/21 18:30 203/144 H 09/12/21 18:20 73 14 97 09/12/21 18:15 77 12 09/12/21 18:15 231/144 H 09/12/21 18:10 62 16 09/12/21 18:00 74 21 09/12/21 18:00 217/141 H 09/12/21 17:50 63 19 87 L 09/12/21 17:45 72 17 97 09/12/21 17:45 246/140 H 09/12/21 17:40 69 18 98 09/12/21 17:30 71 21 96 09/12/21 17:20 78 21 97 09/12/21 17:19 229/169 H 09/12/21 17:19 77 25 H 95 09/12/21 17:18 79 28 H 09/12/21 16:30 75 17 95 09/12/21 16:30 218/148 H 09/12/21 16:20 78 21 97 09/12/21 16:20 223/169 H 09/12/21 16:10 73 20 97 09/12/21 16:10 223/159 H 09/12/21 16:00 72 19 97 09/12/21 15:50 81 23 97 09/12/21 15:50 220/158 H 09/12/21 15:42 81 25 H 98 09/12/21 15:42 229/161 H 09/12/21 15:41 82 24 98 09/12/21 15:41 230/169 H 09/12/21 15:20 87 23 09/12/21 15:10 93 H 20 94 09/12/21 15:00 95 H 23 99 09/12/21 18:00 67 20 231/144 H 97 09/12/21 17:27 69 18 229/169 H 97 09/12/21 17:27 69 18 97 09/12/21 15:44 79 18 230/69 H 98 09/12/21 15:31 227/149 H 09/12/21 14:15 36.5 C 91 H 15 220/161 H 98 O2 Del Method 09/12/21 19:20 09/12/21 19:20 09/12/21 19:15 09/12/21 19:15 09/12/21 19:10 09/12/21 19:00 09/12/21 19:00 09/12/21 18:50 09/12/21 18:45 09/12/21 18:45 09/12/21 18:40 09/12/21 18:30 09/12/21 18:30 09/12/21 18:20 09/12/21 18:15 09/12/21 18:15 09/12/21 18:10 09/12/21 18:00 09/12/21 18:00 09/12/21 17:50 09/12/21 17:45 09/12/21 17:45 09/12/21 17:40 09/12/21 17:30 09/12/21 17:20 09/12/21 17:19 09/12/21 17:19 09/12/21 17:18 09/12/21 16:30 09/12/21 16:30 09/12/21 16:20 09/12/21 16:20 09/12/21 16:10 09/12/21 16:10 09/12/21 16:00 09/12/21 15:50 09/12/21 15:50 09/12/21 15:42 09/12/21 15:42 09/12/21 15:41 09/12/21 15:41 09/12/21 15:20 09/12/21 15:10 09/12/21 15:00 09/12/21 18:00 Room Air 09/12/21 17:27 Room Air 09/12/21 17:27 Room Air 09/12/21 15:44 Room Air 09/12/21 15:31 09/12/21 14:15 Room Air Supervising Physician Co-Signing Physician Notes Attending addendum: I have physically seen this patient, have supervised the medical residents activities, and agree with the H&P unless as otherwise noted. Assessment and Plan: Uncontrolled hypertension/headache- Interventions from the ED: Normal saline 500 mill bolus, labetalol 10 mg IV x2, hydralazine 10 mg IV x1 and then nicardipine drip with improvement from 200s over 150s to 150s over 110s Discontinue nicardipine drip Give enalapril IV initially, follow response, and adjust dosing as needed, starting oral TASNEEM inhibitor Continue metoprolol succinate and amlodipine Check renin and aldosterone levels Check renal Dopplers Hematuria/proteinuria- CT abdomen pelvis without acute findings Order urine microscopic studies Hypokalemia- Question secondary to aldosteronism Supplement orally Follow serial laboratories Elevated troponin- 75.7 upon admission Order a repeat study The patient will be admitted to telemetry for serial cardiac enzymes, serial EKG's, cardiac rhythm monitoring and a 2-D echocardiogram with Dopplers. Remaining orders and notations as noted Resident Activity Tracking Resident Involvement: Resident Care Provided and Postulant Coverage Note Care Provided: Adult Hospital Medicine (1) Hematuria Hematuria type: unspecified type Qualified Code(s): R31.9 - Hematuria, unspecified (2) Headache Headache chronicity pattern: unspecified pattern Headache type: unspecified Intractability: not intractable Qualified Code(s): R51.9 - Headache, unspecified
--- NOTE | 2021-09-12 21:08 | XRay Report ---
SINGLE VIEW CHEST CLINICAL HISTORY: Hypertension. FINDINGS: An AP, portable, upright chest radiograph is obtained. No prior studies are available for c omparison at the time of dictation. The cardiomediastinal silhouette is top normal for projection. Th e lungs and pleural spaces are clear. No pneumothorax is seen. The bony thorax is grossly intact. IMPRESSION: No active disease in the chest. ACT 112: Negative or not required by law. Electronically signed by: Zacarias Pike M.D. 09/12/2021 9:07 PM
[2021-09-12] MEDS ORDERED: ENALAPRILAT 1.25 MG in DEXTROSE 5% 25 ML IV ONE (22:15)
[2021-09-12] MEDS ORDERED: POTASSIUM CHLORIDE CRTAB 20 MEQ TABCR PO SCH (22:30)
[2021-09-12] MEDS: Patient's ALLERGY Info needs ENTERED SCH ×2 (22:40→23:53)
[2021-09-13] MEDS: ACETAMINOPHEN 500 MG TAB PO SCH ×4 (00:19→22:09)
[2021-09-13] MEDS: MELATONIN 3 MG TAB PO PRN ×2 (00:19→22:11)
[2021-09-13] MEDS: LACTATED RINGER'S 1,000 ML IV SCH ×2 (00:19→09:21)
[2021-09-13 08:15] LABS: Basophils # (auto) 0.06 K/uL (0-0.2); Basophils % (auto) 0.5 %; Eosinophils # (auto) 0.25 K/uL (0-0.50); Eosinophils % (auto) 2.2 %; Hematocrit (blood only) 47.5 % (40.1-51.0); Immature Granulocytes # (auto) 0.03 K/uL (0.00-0.02); Immature Granulocytes % (auto) 0.3 %; Lymphocytes # (auto) 2.36 K/uL (1.2-3.4); Lymphocytes % (auto) 20.3 %; Mean Corpuscular Hemoglobin 27.5 pg (25.0-34.0); Mean Corpuscular Hgb Conc 33.7 g/dL (32.0-36.0); Mean Corpuscular Volume 81.8 fL (80.0-100.0); Mean Platelet Volume 10.1 fL (9.4-12.4); Monocytes % (auto) 6.9 %; Neutrophils # (auto) 8.12 K/uL (1.4-6.5); Neutrophils % (auto) 69.8 %; Platelet Count 245 K/uL (130-400); RDW Coefficient of Variation 14.7 % (11.5-14.5); RDW Standard Deviation 42.5 fL (36.4-46.3); Red Blood Count 5.81 M/uL (4.63-6.08); White Blood Count 11.62 K/ul (4.8-10.8)
--- NOTE | 2021-09-13 08:34 | Urology Consultation ---
Date of Consultation September 13, 2021 Assessment & Plan (1) Hematuria: 46-year-old male with hematuria Discussed diagnosis with patient and explained that work-up includes CT scan and cystoscopy. Explained that his CT scan here was without contrast and we may repeat one in the form of a CT urogram in the future for appropriate hematuria work-up. Discussed that I would like to see him as an outpatient in clinic to perform cystoscopy to evaluate for any concerning findings in the bladder and we can also evaluate his nocturia. Can be discharged from a urologic perspective. I will send a message to get him scheduled in my clinic. Urology to sign off History of Present Illness Reason for Consultation: Hematuria Attending Physician: Dean Childers MD History of Present Illness 46-year-old male who was admitted on 09/12/2021 for hematuria. Other than being hypertensive, he has been afebrile with stable vitals. White blood cell count is 11.6 today, creatinine is stable at 0.77 and a urinalysis showed negative nitrites, trace leukocyte esterase, 30+ RBCs, 1-5 WBCs and no bacteria. His troponins were noted to be elevated as well. I independently reviewed a scrotal ultrasound and CT scan. Scrotal ultrasound shows normal testicles and no abnormal findings. Report does mention trace bilateral hydroceles. CT scan of the abdomen and pelvis without contrast shows no hydronephrosis or stones. The bladder was decompressed and therefore hard to evaluate. He denies any previous history of hematuria. His only urinary symptom is nocturia. Past medical history is significant for hypertension. No previous surgeries. He has no smoking history. No family history of bladder or kidney cancer. His father does have a history of prostate cancer. He is emptying his bladder without issue and reports that his hematuria is cleared. He is a gravel truck driver. He did have a 1 day history of testicular pain. Allergies Allergy/AdvReac Type Severity Reaction Status Date / Time walnut Allergy Difficulty Verified 09/12/21 22:39 Breathing Home Medications Medication Instructions Recorded Confirmed Type amlodipine 10 mg tablet 10 mg PO DAILY 09/12/21 09/12/21 History metoprolol succinate 100 mg 100 mg PO DAILY 09/12/21 09/12/21 History tablet,extended release 24 hr Patient History Medical History (Updated 09/12/21 @ 20:56 by Steffen Buchanan MD) Dental infection 2019 treated with cephalexin Hypertension Social History Smoking Status: Never smoker Hx Alcohol Use: Yes Hx Substance Use: No Communication Ability: Effective Beliefs That Will Affect Care: None Current Living Situation: Alone Feels Safe at Home: Yes Review of Systems Review of Systems: 14 point review of systems negative outside of what is listed above in HPI Physical Exam Physical Exam: General: Alert and oriented, no acute distress HEENT: Normocephalic, mucous membranes moist Pulmonary: Nonlabored respirations Abdomen: Nondistended : Patient declined exam. Extremities: Moves all 4 spontaneously Neuro: No gross deficits Skin: Warm, dry, no rashes noted Results & Data ([facility]) Vital Signs (Past 12 Hours) Vital Signs Temp Pulse Pulse Resp BP BP Pulse Ox 09/13/21 07:00 70 09/13/21 02:58 36.6 C 68 18 158/95 H 97 09/12/21 23:50 72 09/12/21 23:35 09/12/21 23:39 36.6 C 71 18 178/124 H 97 09/12/21 23:34 36.6 C 71 20 178/127 H 97 09/12/21 23:11 190/150 H 09/12/21 22:57 69 17 211/141 H 09/12/21 22:48 73 20 228/154 H Pulse Ox O2 Del Method O2 Del Method 09/13/21 07:00 09/13/21 02:58 Room Air 09/12/21 23:50 09/12/21 23:35 97 Room Air 09/12/21 23:39 Room Air 09/12/21 23:34 Room Air 09/12/21 23:11 09/12/21 22:57 Room Air 09/12/21 22:48 PG Care Time/CCT Total # of Minutes Spent Total Time Spent with Patient: Total time spent is greater than 50% in coordination of care (as documented) at patient's floor/unit and/or counseling patient: [place] [address] Inpt Consult Level 3 Patient Type New Diagnoses Hematuria R31.9 Hematuria type: unspecified type (1) Hematuria Hematuria type: unspecified type Qualified Code(s): R31.9 - Hematuria, unspecified
[2021-09-13 08:40] LABS: BUN Creatinine Ratio 10.4 (10-20); Calcium 8.6 mg/dl (8.5-10.1); Chol HDL Ratio 4.2 (0-5); Creatinine Clr Calc Pharmacy 165.9 ml/min; Est GFR (African American) 124.4 ml/min; Est GFR (Non-African American) 107.3 ml/min; Potassium 3.8 mmol/L (3.5-5.1)
[2021-09-13] MEDS ORDERED: lisinopril 10 MG TAB PO SCH (09:00)
[2021-09-13 09:23] LABS: Protein Creatinine Ratio Urine 0.3 (0-0.2); Total Protein Urine Random 21.4 mg/dl (0-11.9)
[2021-09-13] MEDS: amLODIPine BESYLATE 5 MG TAB PO SCH (10:16)
[2021-09-13] MEDS: METOPROLOL SUCC 50MG EXT REL TAB PO SCH (10:16)
--- NOTE | 2021-09-13 11:41 | Electrocardiogram Report ---
Test Reason : Blood Pressure : / mmHG Vent. Rate : 069 BPM Atrial Rate : 069 BPM P-R Int : 142 ms QRS Dur : 088 ms QT Int : 426 ms P-R-T Axes : 028 009 165 degrees QTc Int : 456 ms Normal sinus rhythm Minimal voltage criteria for LVH, may be normal variant T wave abnormality, consider lateral ischemia Abnormal ECG No previous ECGs available Confirmed by Javid Thibodeaux ([id number]) on 09/13/2021 11:41:35 AM Referred By: REFERRED SELF Confirmed By:Javid Thibodeaux
[2021-09-13] MEDS ORDERED: lisinopril 10 MG TAB PO ONE (12:58)
[2021-09-13] MEDS ORDERED: LABETALOL HCL IV 5 MG/ML 20ML IV STA (16:08)
--- NOTE | 2021-09-13 17:11 | Hospitalist Progress Note ---
Date of Service September 13, 2021 Assessment & Plan (1) Hematuria: Plan: Resolved but etiology not clear; unfortunately CT scan was without contrast; urine culture, urology consult; UPC not impressivedoes not appear glomerular (2) Hypertension: Plan: Severely uncontrolled but not symptomatic Added TASNEEM inhibitor; persistently high therefore 1 dose labetalol; follow (3) Elevated troponin: Plan: No angina; await echo but likely type II NSTEMI related to demand; at present follow conservativelylikely merits risk stratification via stress test at some point, after blood pressure better controlled (4) Leukocytosis: Plan: afebrile, urine culture but otherwise no antibiotics for now (5) Splenomegaly: Plan: With hepatic steatosisoutpatient follow-up; recommend cessation of alcohol intake Admission and Anticipated Discharge Date Admission Date: September 12, 2021 Subjective Follow-up of presentation with hematuriahematuria resolved; no symptoms really; never had angina Physical Exam Physical Exam: Constitutional and general: No acute distress, looks biologic age Head and face: No puffiness, atraumatic Eyes: No scleral icterus, extraocular movements normal Neck: Supple, no JVD Musculoskeletal: No acute joint swelling, no bony abnormalities Skin/dermatologic/integument: No rash, no purpura Hematologic and lymphatic: pallor +, no petechia Gastrointestinal/abdomen: Nondistended, soft, nonacute Neurologic: Cranial nerves intact, nonfocal Psychiatry: Awake, alert, pleasant, communicative Cardiovascular: Heart rhythm regular, no rub, no murmur, no gallop Respiratory: Chest movements equal, no use of accessory muscles, no adventitious sounds Extremities: Noedema, no cyanosis Results & Data Results & Data ([facility]) Vital Signs (Past 12 Hours) Vital Signs Pulse Pulse BP 09/13/21 16:39 82 09/13/21 16:07 85 188/128 H 09/13/21 12:18 70 184/116 H 09/13/21 12:16 69 178/122 H 09/13/21 10:15 69 193/129 H 09/13/21 10:15 68 183/133 H 09/13/21 07:00 70 Laboratory Results Laboratory Results - last 24 hr 09/12/21 09/12/21 09/12/21 15:15 15:15 19:20 WBC RBC Hgb Hct MCV MCH MCHC RDW Std Deviation RDW Coeff of Ish Plt Count MPV Immature Gran % (Auto) Neut % (Auto) Lymph % (Auto) [place] % (Auto) Eos % (Auto) Baso % (Auto) Neut # (Auto) Lymph # (Auto) [place] # (Auto) Eos # (Auto) Baso # (Auto) Immature Gran # (Auto) Sodium Potassium Chloride Carbon Dioxide Anion Gap BUN Creatinine Est Cr Clr Drug Dosing Est GFR ( Amer) Est GFR (Non-Af Amer) BUN/Creatinine Ratio Glucose Estimat Average Glucose Hemoglobin A1c Calcium Magnesium 2.1 Troponin I High Sens 75.7 H* Triglycerides Cholesterol LDL Cholesterol, Calc VLDL Cholesterol, Calc HDL Cholesterol Cholesterol/HDL Ratio Renin Activity Aldosterone Ur Random Creatinine U Random Total Protein Protein/Creatinin Ratio SARS-CoV-2, RNA, NAAT NEGATIVE 09/12/21 09/12/21 09/13/21 21:12 22:27 07:17 WBC RBC Hgb Hct MCV MCH MCHC RDW Std Deviation RDW Coeff of Ish Plt Count MPV Immature Gran % (Auto) Neut % (Auto) Lymph % (Auto) [place] % (Auto) Eos % (Auto) Baso % (Auto) Neut # (Auto) Lymph # (Auto) [place] # (Auto) Eos # (Auto) Baso # (Auto) Immature Gran # (Auto) Sodium Potassium Chloride Carbon Dioxide Anion Gap BUN Creatinine Est Cr Clr Drug Dosing Est GFR ( Amer) Est GFR (Non-Af Amer) BUN/Creatinine Ratio Glucose Estimat Average Glucose Pending Hemoglobin A1c Pending Calcium Magnesium Troponin I High Sens 90.9 H* D Triglycerides Cholesterol LDL Cholesterol, Calc VLDL Cholesterol, Calc HDL Cholesterol Cholesterol/HDL Ratio Renin Activity Pending Aldosterone Pending Ur Random Creatinine U Random Total Protein Protein/Creatinin Ratio SARS-CoV-2, RNA, NAAT 09/13/21 09/13/21 09/13/21 07:17 07:17 08:20 WBC 11.62 H RBC 5.81 Hgb 16.0 Hct 47.5 MCV 81.8 MCH 27.5 MCHC 33.7 RDW Std Deviation 42.5 RDW Coeff of Ish 14.7 H Plt Count 245 MPV 10.1 Immature Gran % (Auto) 0.3 Neut % (Auto) 69.8 Lymph % (Auto) 20.3 [place] % (Auto) 6.9 Eos % (Auto) 2.2 Baso % (Auto) 0.5 Neut # (Auto) 8.12 H Lymph # (Auto) 2.36 [place] # (Auto) 0.80 Eos # (Auto) 0.25 Baso # (Auto) 0.06 Immature Gran # (Auto) 0.03 H Sodium 141 Potassium 3.8 Chloride 105 Carbon Dioxide 31 Anion Gap 5 BUN 8 Creatinine 0.77 Est Cr Clr Drug Dosing 165.9 Est GFR ( Amer) 124.4 Est GFR (Non-Af Amer) 107.3 BUN/Creatinine Ratio 10.4 Glucose 86 Estimat Average Glucose Hemoglobin A1c Calcium 8.6 Magnesium 2.0 Troponin I High Sens Triglycerides 127 Cholesterol 127 LDL Cholesterol, Calc 72 VLDL Cholesterol, Calc 25 HDL Cholesterol 30 Cholesterol/HDL Ratio 4.2 Renin Activity Aldosterone Ur Random Creatinine U Random Total Protein 21.2 H Protein/Creatinin Ratio SARS-CoV-2, RNA, NAAT 09/13/21 09/13/21 08:20 10:07 WBC RBC Hgb Hct MCV MCH MCHC RDW Std Deviation RDW Coeff of Ish Plt Count MPV Immature Gran % (Auto) Neut % (Auto) Lymph % (Auto) [place] % (Auto) Eos % (Auto) Baso % (Auto) Neut # (Auto) Lymph # (Auto) [place] # (Auto) Eos # (Auto) Baso # (Auto) Immature Gran # (Auto) Sodium Potassium Chloride Carbon Dioxide Anion Gap BUN Creatinine Est Cr Clr Drug Dosing Est GFR ( Amer) Est GFR (Non-Af Amer) BUN/Creatinine Ratio Glucose Estimat Average Glucose Hemoglobin A1c Calcium Magnesium Troponin I High Sens 75.4 H* D Triglycerides Cholesterol LDL Cholesterol, Calc VLDL Cholesterol, Calc HDL Cholesterol Cholesterol/HDL Ratio Renin Activity Aldosterone Ur Random Creatinine 69.0 U Random Total Protein 21.4 H Protein/Creatinin Ratio 0.3 H SARS-CoV-2, RNA, NAAT PG Care Time/CCT Total # of Minutes Spent Total Time Spent with Patient: Total time spent is greater than 50% in coordination of care (as documented) at patient's floor/unit and/or counseling patient: Coding Level of Care Code 40428 Subseq Hosp Care Lvl 2 Diagnoses Hematuria R31.9 Hematuria type: unspecified type Hypertension I10 Elevated troponin R77.8 Leukocytosis D72.829 Splenomegaly R16.1 (1) Hematuria Hematuria type: unspecified type Qualified Code(s): R31.9 - Hematuria, unspecified
--- NOTE | 2021-09-13 19:41 | Billing Data ---
Date of Service September 13, 2021 Coding Level of Care Code 38382 Initial Inpt Care Lvl 3
[2021-09-14 06:38] LABS: Estimated Average Glucose 111 mg/dl; Hemoglobin A1C 5.5 % (4.5-5.6)
[2021-09-14] MEDS: ACETAMINOPHEN 500 MG TAB PO SCH ×3 (07:45→23:31)
[2021-09-14 08:08] LABS: Basophils # (auto) 0.06 K/uL (0-0.2); Basophils % (auto) 0.6 %; Eosinophils # (auto) 0.38 K/uL (0-0.50); Eosinophils % (auto) 3.6 %; Hemoglobin 15.9 g/dl (14.0-18.0); Immature Granulocytes # (auto) 0.04 K/uL (0.00-0.02); Immature Granulocytes % (auto) 0.4 %; Lymphocytes % (auto) 19.7 %; Mean Corpuscular Hemoglobin 27.7 pg (25.0-34.0); Mean Corpuscular Hgb Conc 33.8 g/dL (32.0-36.0); Mean Corpuscular Volume 81.7 fL (80.0-100.0); Mean Platelet Volume 9.8 fL (9.4-12.4); Monocytes # (auto) 0.55 K/uL (0.24-0.82); Monocytes % (auto) 5.1 %; Neutrophils # (auto) 7.55 K/uL (1.4-6.5); Neutrophils % (auto) 70.6 %; Platelet Count 247 K/uL (130-400); RDW Coefficient of Variation 14.7 % (11.5-14.5); RDW Standard Deviation 43.5 fL (36.4-46.3); Red Blood Count 5.75 M/uL (4.63-6.08); White Blood Count 10.68 K/ul (4.8-10.8)
[2021-09-14] MEDS: METOPROLOL SUCC 50MG EXT REL TAB PO SCH (08:08)
[2021-09-14] MEDS: amLODIPine BESYLATE 5 MG TAB PO SCH (08:08)
[2021-09-14 08:32] LABS: BUN Creatinine Ratio 14.3 (10-20); Calcium 8.7 mg/dl (8.5-10.1); Est GFR (Non-African American) 103.5 ml/min; Magnesium 1.9 mg/dl (1.7-2.4); Potassium 3.9 mmol/L (3.5-5.1)
--- NOTE | 2021-09-14 08:57 | Hospitalist Progress Note ---
Date of Service September 14, 2021 Assessment & Plan (1) Hematuria: Plan: 46yo male with a history of HTN presents with a four-day history of dark urine with occasional blood clots, intermittent headaches, and severe hypertension. 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 * NO bacteria on UA but cx pending * Hx 4 days dark urine/clot. Given IVF (ck today checked, low) * CT without evidence for tumor * Urology consulted, signed off and can have outpt f/u for CT urogram, cystoscopy and eval nocturia Discussed with nephrology and will repeat urine studies to assess for blood/protein ?Possible cancel consult pending repeat studies and can discuss case rather than formal consult HYPERTENSION significantly elevated, thankfully without CP/SOB, no headache today reported * patient admitted to having HTN for years and rx for such but stopped really taking them at all as even when taking them his BP remained elevated and he didn't want to be taking something that didn't work. * Given 500cc NSS bolus in ER, labetaolol 10mg IV x 2, hydralazine 10mg x1 and started on nicardipine gtt with improvement in BP to 150s/110s. Additional 2L IVF w/ LR * Additional 20mg IV hydralazine given evening 09/13 * Continued prior rx amlodipine 10mg, metoprolol succinate 100mg daily * Added lisinopril 20mg daily started 09/14 as BP remained elevated to 182/142 and currently 167/115 * Checking Renal artery US to r/o YAMILETH. Cr remains stable Renin, aldosterone levels pending for possible 2nd aldosteronism (hypoK on admit 3.2) ?better benefit with using diuretic therapy such as spironolactone given hepatic steatosis/splenomegaly despite denying etoh use Mild hypokalemia * On admit, K 3.2. Replacement ordered, mag wnl * Repeat wnl * Renin, aldosterone levels pending for 2nd sarah causing HTN * Labs in AM Elevated troponin * Trop 75.7 on admit, no CP or overt EKG changes * Repeat trop 90.9, trended down to 75.4 on repeat but still with elevated pressures (repeat not indicated given delta <20) * ECHO ordered in system, confirmed completed with sand technician on 09/13 but not yet read in system --> MONITOR Hepatic steatosis * Incidentally found on CT abdomen/pelvis; unlikely related to presenting symptoms * Outpatient follow-up recommended * Denies etoh use, but will check b12/folate studies for completeness DVT Prophylaxis SCDs, ambulation Will add Heparin SQ while inpatient Continued inpatient stay, possible discharge tomorrow pending above (2) Headache: (3) Hypertension: (4) Hypertensive urgency: (5) Splenomegaly: (6) Elevated troponin: (7) Hepatic steatosis: Plan: noted on imaging, w/ splenomegaly, LFTs wnl. plts acceptable. lyme nega tive/anaplas pending Admission and Anticipated Discharge Date Admission Date: September 12, 2021 Supervising Physician Co-Signing Physician Notes Attending Attestation: Chart reviewed in detail, care plan d/w PA Crissy Carrasco. I agree w/ the cowan components of her documentation. Kan Hodges MD Subjective evaluated this afternoon had not been taking BP meds regularly at all, most recently not particularly at all as he confirmed he didn't want to continue taking something when it wasn't working. addition of lisinopril to prior usual regimen with improvement in BP but still elevated. Denies hx QUETA but never tested. Denies alcohol use, and cigarettes but does chew tobacco, approx 1 can every three days. Discussed risks and rec'd cessation. He is tired of being in the hospital. Discussed checking renal artery US to ensure no renal artery stenosis but if BPs improved and remains asymptomatic possibly discharge tomorrow but would not like to see diastolic BP >100. Fortunately patient without chest pain, shortness of breath, headache (prior, since improved/resolved), visual symptoms at this time. Review of Systems Review of Systems: All systems reviewed & are unremarkable except as noted in HPI & below Physical Exam Physical Exam: General: WD/WN morbidly obese male sitting up in chair, sleeping, NAD HEENT: eyes anicteric, pupils equal and reactive, trachea midline without deviation, +thick neck Resp: CTAB, diminished in the bases, no w/c, on room air CV: RRR, no m/r/g, no pitting edema or calf tenderness GI: +BS, obese, nontender MSK/Neuro: moves all extremities, strength equal throughout, no focal deficit Psych: AOx3, cooperative Skin: warm, dry Results & Data Results & Data ([facility]) Vital Signs (Past 12 Hours) Vital Signs Temp Pulse Pulse Resp BP Pulse Ox O2 Del Method 09/14/21 08:51 Room Air 09/14/21 07:24 36.5 C 74 15 182/142 H 93 Room Air 09/14/21 04:00 36.7 C 73 18 156/103 H 94 Room Air 09/13/21 23:00 79 09/13/21 22:14 36.5 C 68 19 159/110 H 94 Room Air Laboratory Results 09/14/21 09/14/21 09/13/21 Range/Units 07:48 07:48 10:07 WBC 10.68 (4.8-10.8) K/ul RBC 5.75 (4.63-6.08) M/uL Hgb 15.9 (14.0-18.0) g/dl Hct 47.0 (40.1-51.0) % MCV 81.7 (80.0-100.0) fL MCH 27.7 (25.0-34.0) pg MCHC 33.8 (32.0-36.0) g/dL RDW Std Deviation 43.5 (36.4-46.3) fL RDW Coeff of Ish 14.7 H (11.5-14.5) % Plt Count 247 (130-400) K/uL MPV 9.8 (9.4-12.4) fL Immature Gran % (Auto) 0.4 % Neut % (Auto) 70.6 % Lymph % (Auto) 19.7 % [place] % (Auto) 5.1 % Eos % (Auto) 3.6 % Baso % (Auto) 0.6 % Neut # (Auto) 7.55 H (1.4-6.5) K/uL Lymph # (Auto) 2.10 (1.2-3.4) K/uL [place] # (Auto) 0.55 (0.24-0.82) K/uL Eos # (Auto) 0.38 (0-0.50) K/uL Baso # (Auto) 0.06 (0-0.2) K/uL Immature Gran # (Auto) 0.04 H (0.00-0.02) K/uL Sodium 139 (136-145) mmol/L Potassium 3.9 (3.5-5.1) mmol/L Chloride 104 (98-107) mmol/L Carbon Dioxide 30 (21-32) mmol/L Anion Gap 5 (3-11) BUN 12 (6-23) mg/dl Creatinine 0.84 (0.6-1.4) mg/dl Est Cr Clr Drug Dosing 152.0 ml/min Est GFR ( Amer) 120.0 ml/min Est GFR (Non-Af Amer) 103.5 ml/min BUN/Creatinine Ratio 14.3 (10-20) Glucose 142 H (70-99(Fasting)) mg/dl Estimat Average Glucose mg/dl Hemoglobin A1c (4.5-5.6) % Calcium 8.7 (8.5-10.1) mg/dl Magnesium 1.9 (1.7-2.4) mg/dl Troponin I High Sens 75.4 H* D (0-20) pg/ml Ur Random Creatinine mg/dl U Random Total Protein (0-11.9) mg/dl Protein/Creatinin Ratio (0-0.2) 09/13/21 09/13/21 09/13/21 Range/Units 08:20 08:20 07:17 WBC (4.8-10.8) K/ul RBC (4.63-6.08) M/uL Hgb (14.0-18.0) g/dl Hct (40.1-51.0) % MCV (80.0-100.0) fL MCH (25.0-34.0) pg MCHC (32.0-36.0) g/dL RDW Std Deviation (36.4-46.3) fL RDW Coeff of Ish (11.5-14.5) % Plt Count (130-400) K/uL MPV (9.4-12.4) fL Immature Gran % (Auto) % Neut % (Auto) % Lymph % (Auto) % [place] % (Auto) % Eos % (Auto) % Baso % (Auto) % Neut # (Auto) (1.4-6.5) K/uL Lymph # (Auto) (1.2-3.4) K/uL [place] # (Auto) (0.24-0.82) K/uL Eos # (Auto) (0-0.50) K/uL Baso # (Auto) (0-0.2) K/uL Immature Gran # (Auto) (0.00-0.02) K/uL Sodium (136-145) mmol/L Potassium (3.5-5.1) mmol/L Chloride (98-107) mmol/L Carbon Dioxide (21-32) mmol/L Anion Gap (3-11) BUN (6-23) mg/dl Creatinine (0.6-1.4) mg/dl Est Cr Clr Drug Dosing ml/min Est GFR ( Amer) ml/min Est GFR (Non-Af Amer) ml/min BUN/Creatinine Ratio (10-20) Glucose (70-99(Fasting)) mg/dl Estimat Average Glucose 111 mg/dl Hemoglobin A1c 5.5 (4.5-5.6) % Calcium (8.5-10.1) mg/dl Magnesium (1.7-2.4) mg/dl Troponin I High Sens (0-20) pg/ml Ur Random Creatinine 69.0 mg/dl U Random Total Protein 21.4 H 21.2 H (0-11.9) mg/dl Protein/Creatinin Ratio 0.3 H (0-0.2) Diagnostic Findings Abdomen/Pelvis CT 09/12/21 14:25 CT SCAN OF THE ABDOMEN AND PELVIS WITHOUT IV CONTRAST CLINICAL HISTORY: Hematuria. COMPARISON STUDY: No priors. TECHNIQUE: CT scan of the abdomen and pelvis is performed from the lung bases to the proximal femora. Images are reviewed in the axial, sagittal, and coronal planes. IV contrast was not administered for this examination. A dose lowering technique was utilized adhering to the principles of ALARA. CT DOSE: 1638.60 mGy.cm FINDINGS: Lung bases: The heart is normal in size and without pericardial effusion. There are small bilateral fat-containing Bochdalek hernias. The lung bases are clear. There is a small hiatal hernia. Liver: The unenhanced liver is top normal in size and demonstrates diffusely diminished attenuation indicating steatosis. Fatty sparing is seen adjacent to gallbladder fossa. There is no intrahepatic biliary ductal dilatation. Gallbladder: Unremarkable. Spleen: The spleen is enlarged measuring 15.6 cm in length. A 2.7 cm peripherally calcified cyst is noted in the anterior spleen. Pancreas: Unremarkable. Adrenal glands: Unremarkable. Kidneys: The unenhanced kidneys are normal in size and without hydronephrosis. There are no renal calculi identified. There is no evidence of contour deforming renal mass lesion. Abdominal vasculature: The abdominal aorta is normal in course and caliber. Bowel: There is no bowel obstruction. Mild fecal retention is seen throughout the colon. The appendix is well-visualized and normal. Peritoneum: There is no intraperitoneal free air or abdominal ascites. There is a small fat-containing umbilical hernia. Lymphadenopathy: None. Pelvic viscera: The bladder is decompressed and appears circumferentially thick walled. The prostate and seminal vesicles are normal as visualized. Skeletal structures: No lytic or blastic lesions are seen. Mild degenerative change is noted in the sacroiliac joints. There is a posterior disc osteophyte complex at L5-S1. IMPRESSION: 1. The bladder is decompressed and appears circumferentially thick walled. Correlate with clinical findings and urinalysis. 2. Mild hepatic steatosis. 3. Splenomegaly. 4. No renal calculi are identified. 5. Additional findings as above. Noted in the sacroiliac joints. ACT 112: Negative or not required by law. Electronically signed by: Zacarias Pike M.D. 09/12/2021 3:53 PM Scrotum Ultrasound 09/12/21 14:26 ULTRASOUND TESTES AND SCROTUM CLINICAL HISTORY: Left testicular pain COMPARISON STUDY: No priors. TECHNIQUE: Real-time, grayscale, and color Doppler sonography of the testes and scrotum is performed. Images are reviewed in the transverse and longitudinal planes. FINDINGS: The testes are normal in size and homogeneous in echotexture. The right testis measures 3.9 x 2.2 x 2.7 cm and the left testis measures 4.0 x 2.1 x 2.9 cm. A tiny calcification of the tunica is incidentally noted on the right. No intratesticular mass is seen. Testicular blood flow is normal and symmetric. Normal Doppler waveforms are identified in both testes. The epididymal heads are normal in appearance. The right epididymal head measures 1.3 cm in length and the left epididymal head measures 1.1 cm in length. There are trace bilateral hydroceles. No varicocele is seen. IMPRESSION: 1. Unremarkable sonographic examination of the testes. 2. Trace bilateral hydroceles. ACT 112: Negative or not required by law. Electronically signed by: Zacarias Pike M.D. 09/12/2021 5:18 PM Head CTA 09/12/21 16:45 CT ANGIOGRAM OF THE BRAIN COMBO CLINICAL HISTORY: Headache COMPARISON STUDY: No priors. TECHNIQUE: Unenhanced axial CT scan of the brain is performed. Subsequently, following the IV administration of 118 cc of Optiray 320, CT angiogram of the brain was performed from the skull base to the vertex. Images are reviewed in the axial, sagittal, and coronal planes. 3-D MIPS images are created and assessed. IV contrast was administered without complication. A dose lowering technique was utilized adhering to the principles of ALARA. CT DOSE: 673.96 mGy.cm FINDINGS: Brain parenchyma: Scattered hypoattenuating foci throughout the white matter likely represent microangiopathic change. There is no hemorrhage, mass effect, or evidence of acute territorial ischemia by CT criteria. There is no evidence of enhancing mass lesion on the angiogram phase images. No extra-axial fluid collection is seen. [place]-white matter differentiation is preserved. Ventricles, sulci, and cisterns: Normal in configuration. CT angiogram of the brain: The [place] is developmentally complete. The internal carotid arteries are widely patent, as are the anterior and middle cerebral arteries. The vertebrobasilar system and posterior cerebral arteries are widely patent. The left vertebral artery is dominant. The right vertebral artery is diminutive. There is no aneurysm, high-grade stenosis, or focal vessel cutoff identified throughout the intracranial circulation. Dural sinuses: Clear as visualized. Orbits: The bony orbits are intact. The orbital contents are normal as visualized. Sinuses and mastoids: There is subtotal opacification of the right sphenoid sinus which may represent a large retention cyst. A 1.5 cm retention cyst is noted in the left maxillary antrum. There is trace mucosal thickening in the right maxillary sinus. The mastoid air cells are well pneumatized. Calvarium: Unremarkable. IMPRESSION: 1 There is no hemorrhage, mass effect, or evidence of acute territorial ischemia by CT criteria. 2. Scattered hypoattenuating foci throughout the white matter likely represent age advanced microangiopathic change. Clinical correlation will be required. 3. Unremarkable CT angiogram of the brain. ACT 112: Negative or not required by law. Electronically signed by: Zacarias Pike M.D. 09/12/2021 5:16 PM Chest X-Ray 09/12/21 20:19 SINGLE VIEW CHEST CLINICAL HISTORY: Hypertension. FINDINGS: An AP, portable, upright chest radiograph is obtained. No prior studies are available for comparison at the time of dictation. The cardiomediastinal silhouette is top normal for projection. The lungs and pleural spaces are clear. No pneumothorax is seen. The bony thorax is grossly intact. IMPRESSION: No active disease in the chest. ACT 112: Negative or not required by law. Electronically signed by: Zacarias Pike M.D. 09/12/2021 9:07 PM PG Care Time/CCT Total # of Minutes Spent Total Time Spent with Patient: Total time spent is greater than 50% in coordination of care (as documented) at patient's floor/unit and/or counseling patient: Coding Level of Care Code 49043 Subseq Hosp Care Lvl 3 Diagnoses Hematuria R31.9 Hematuria type: unspecified type Headache R51.9 Headache chronicity pattern: unspecified pattern Headache type: unspecified Intractability: not intractable Hypertension I10 Hypertensive urgency I16.0 Splenomegaly R16.1 Elevated troponin R77.8 Hepatic steatosis K76.0 (1) Hematuria Hematuria type: unspecified type Qualified Code(s): R31.9 - Hematuria, unspecified (2) Headache Headache chronicity pattern: unspecified pattern Headache type: unspecified Intractability: not intractable Qualified Code(s): R51.9 - Headache, unspecified
[2021-09-14] MEDS ORDERED: lisinopril 20 MG TAB PO SCH (09:00)
[2021-09-14 12:04] LABS: Lyme Ab IgG w/WB Rflx Negative (Negative); Lyme Ab IgM w/WB Rflx Negative (Negative)
[2021-09-14 14:19] LABS: Folate (Folic Acid) 10.26 ng/ml (>5.38)
[2021-09-14 15:20] LABS: Appearance Urine Clear (Clear); Bacteria Urine Automated Negative (Negative); Bilirubin Urine Negative (Negative); Blood Urine 3+ (Negative); Cast Urine Automated 0 /lpf (0-5); Color Urine Yellow; Epithelial Cell Urine Auto 0-5 /lpf (0-5); Glucose Urine UA 1+ (Negative); Ketones Urine Negative (Negative); Leukocyte Esterase Urine Negative (Negative); Nitrite Urine Negative (Negative); Protein Urine Trace (Negative); Specific Gravity Urine 1.021 (1.000-1.030); Urobilinogen Urine Negative (Negative); pH Urine 6.5 (4.5-7.5)
[2021-09-14] MEDS: hydrALAZINE HCL 20 MG/ML VIAL IV PRN (15:24)
--- NOTE | 2021-09-14 15:56 | Ultrasound Report ---
US duplex renal artery CLINICAL HISTORY: Hypertension. Evaluate for renal artery stenosis. COMPARISON STUDY: CT of the abdomen and pelvis September 12, 2021. TECHNIQUE: Color and duplex Doppler sonography of the abdominal aorta and renal arteries was yaneli pina. FINDINGS: Peak systolic velocity within the abdominal aorta was 93 cm a second. Bilateral renal arter ies and veins were patent. Peak systolic velocity within the right renal artery was 117 cm/s. Systoli c waveforms within the segmental vessels of the right kidney were normal. Peak systolic velocity with in the left renal artery was 65 cm/s. Exam is mildly compromised by suboptimal penetration however th e bilateral renal arteries were visualized. Segmental vessels within the left kidney demonstrated nor mal waveforms. IMPRESSION: Exam mildly compromised by suboptimal penetration but no sonographic evidence for renal artery stenosis. ACT 112: Negative or not required by law. Electronically signed by: Bradley Bedolla M.D. 09/14/2021 3:54 PM
--- NOTE | 2021-09-14 17:27 | XCELERA ---
[id number] \\[id number]
--- NOTE | 2021-09-14 19:52 | Nephrology Consultation ---
Date of Consultation September 14, 2021 Assessment & Plan (1) Hematuria: Gross hematuria with clots consistent with non-glomerular etiology. No WBC's. Normal serum creatinine. Will require close follow up for outpatient urologic evaluation. Presentation would be very atypical for vasculitis. No evidence of GN otherwise. Imaging reviewed. Consider CT with contrast if concerns persist. (2) Hypertensive urgency: No YAMILETH. Renin and aldosterone level pending. CT did not demonstrate any c oncerning adrenal lesions. Increase lisinopril to 40 mg daily. Consider addition of a thiazide diuretic if elevated BP persists. (3) Hypokalemia: Resolved with replacement and added therapy. No history. Possible aldosteronism. Renin and sarah pending. History of Present Illness Reason for Consultation: Hematuria, proteinuria Requesting Physician: Kan Hodges Attending Physician: Kan Hodges History of Present Illness Mr. Gavino Alas is a 46-year-old male with hypertension, obesity, and ANN. He presented to [facility] on September 12 with dark urine and passage of clots. Gavino also noted headache x 4 days and elevated BP readings. He had experienced a recent transient episode of explained scrotal pain as well. He was admitted with s erologic evaluation demonstrating mild hypokalemia and normal serum creatinine. Urine +3 blood, +2 protein, and trace LE. No WBCs. CT scan did not demonstrate any abnormal findings in the kidneys or bladder. However, some thickening of the bladder was was noted. Gavino denies any other LUTS. Renal artery duplex not optimal study but arteries were visualized without evidence of hemodynamically significant stenosis (peak systolic 117 cm/s R and 65 cm/s L). Testicular ultrasound was unrevealing. Urology consultation suggested outpatient follow up for cystoscopy and possible CT urogram. Urine culture was negative. Gross hematuria has resolved. Microscopic hematuria persists. CK normal. Renin and sarah levels are pending. Creatinine remains normal. Antihypertensive therapy now consists of lisinopril 20 mg daily, amlodipine 10 mg daily, and metoprolol succinate 100 mg daily. BP remains elevated. Symptoms of accelerated hypertension have resolved. Gavino reports heavy lifting at work ~ 3 days prior to onset of symptoms. HTN diagnosed ~5 years ago on routine screening. No history of accelerated or symptomatic hypertension in the past. Controlled with amlodipine 10 mg daily and metoprolol succinate 100 mg daily previously. Did not tolerate ACEi in the past due to dry cough. Did not tolerate a diuretic (HCTZ, he believes) due to urinary frequency. Allergies Allergy/AdvReac Type Severity Reaction Status Date / Time walnut Allergy Difficulty Verified 09/12/21 22:39 Breathing Home Medications Medication Instructions Recorded Confirmed Type amlodipine 10 mg tablet 10 mg PO DAILY 09/12/21 09/12/21 History metoprolol succinate 100 mg 100 mg PO DAILY 09/12/21 09/12/21 History tablet,extended release 24 hr Patient History Medical History Dental infection 2019 treated with cephalexin Hypertension Social History Smoking Status: Never smoker Hx Alcohol Use: Yes Hx Substance Use: No Communication Ability: Effective Beliefs That Will Affect Care: None Current Living Situation: Alone Feels Safe at Home: Yes Assistive Devices: None Review of Systems Review of Systems: All systems reviewed & are unremarkable except as noted in HPI & below Physical Exam Constitutional: well developed; no acute distress Eyes: no scleral abnormality and no corneal abnormality Neck: normal visual inspection and trachea midline Respiratory: normal respiratory effort Auscultation: lungs clear to auscultation bilaterally Cardiovascular: Rate/Rhythm: regular rate Heart Sounds: normal S1 and normal S2 Extremities: no edema Musculoskeletal: Extremities: no cyanosis and no clubbing Skin: normal turgor; no lesions Neurologic: Motor/Sensory: no tremor and no asterixis Psychiatric: Orientation: alert and oriented x 3 Results & Data ([facility]) Vital Signs (Past 12 Hours) Vital Signs Temp Pulse Pulse Pulse Resp BP BP 09/14/21 19:47 36.6 C 70 18 171/111 H 09/14/21 16:51 162/95 H 09/14/21 15:31 75 09/14/21 15:17 176/132 H 172/121 H 09/14/21 15:14 36.7 C 75 16 170/133 H 09/14/21 11:12 36.6 C 76 15 167/115 H 09/14/21 08:51 Pulse Ox O2 Del Method 09/14/21 19:47 94 Room Air 09/14/21 16:51 09/14/21 15:31 09/14/21 15:17 09/14/21 15:14 95 Room Air 09/14/21 11:12 91 Room Air 09/14/21 08:51 Room Air Laboratory Results Laboratory Results - last 24 hr 09/13/21 09/14/21 09/14/21 07:17 07:48 07:48 WBC 10.68 RBC 5.75 Hgb 15.9 Hct 47.0 MCV 81.7 MCH 27.7 MCHC 33.8 RDW Std Deviation 43.5 RDW Coeff of Ish 14.7 H Plt Count 247 MPV 9.8 Immature Gran % (Auto) 0.4 Neut % (Auto) 70.6 Lymph % (Auto) 19.7 Mckean % (Auto) 5.1 Eos % (Auto) 3.6 Baso % (Auto) 0.6 Neut # (Auto) 7.55 H Lymph # (Auto) 2.10 Mckean # (Auto) 0.55 Eos # (Auto) 0.38 Baso # (Auto) 0.06 Immature Gran # (Auto) 0.04 H Sodium 139 Potassium 3.9 Chloride 104 Carbon Dioxide 30 Anion Gap 5 BUN 12 Creatinine 0.84 Est Cr Clr Drug Dosing 152.0 Est GFR ( Amer) 120.0 Est GFR (Non-Af Amer) 103.5 BUN/Creatinine Ratio 14.3 Glucose 142 H Estimat Average Glucose 111 Hemoglobin A1c 5.5 Calcium 8.7 Magnesium 1.9 Iron TIBC Unsaturated IBC Transferrin % Sat Ferritin Total Creatine Kinase Vitamin B12 Folate Urine Color Urine Appearance Urine pH Ur Specific [place] Urine Protein Urine Glucose (UA) Urine Ketones Urine Blood Urine Nitrite Urine Bilirubin Urine Urobilinogen Ur Leukocyte Esterase Urine WBC (Auto) Urine RBC (Auto) U Hyaline Cast (Auto) U Epithel Cells (Auto) Urine Bacteria (Auto) Ur Random Creatinine U Random Total Protein Anaplasma Smear Lyme Disease IgG Ab Lyme Disease IgM Ab 09/14/21 09/14/21 09/14/21 07:48 07:48 11:02 WBC RBC Hgb Hct MCV MCH MCHC RDW Std Deviation RDW Coeff of Ish Plt Count MPV Immature Gran % (Auto) Neut % (Auto) Lymph % (Auto) [place] % (Auto) Eos % (Auto) Baso % (Auto) Neut # (Auto) Lymph # (Auto) [place]ke[place] # (Auto) Eos # (Auto) Baso # (Auto) Immature Gran # (Auto) Sodium Potassium Chloride Carbon Dioxide Anion Gap BUN Creatinine Est Cr Clr Drug Dosing Est GFR ( Amer) Est GFR (Non-Af Amer) BUN/Creatinine Ratio Glucose Estimat Average Glucose Hemoglobin A1c Calcium Magnesium Iron 64 TIBC 352 Unsaturated IBC 288 Transferrin % Sat 18 L Ferritin 56.0 Total Creatine Kinase 23 L Vitamin B12 Folate Urine Color Urine Appearance Urine pH Ur Specific [place] Urine Protein Urine Glucose (UA) Urine Ketones Urine Blood Urine Nitrite Urine Bilirubin Urine Urobilinogen Ur Leukocyte Esterase Urine WBC (Auto) Urine RBC (Auto) U Hyaline Cast (Auto) U Epithel Cells (Auto) Urine Bacteria (Auto) Ur Random Creatinine U Random Total Protein Anaplasma Smear Lyme Disease IgG Ab Negative Lyme Disease IgM Ab Negative 09/14/21 09/14/21 09/14/21 11:02 13:16 14:03 WBC RBC Hgb Hct MCV MCH MCHC RDW Std Deviation RDW Coeff of Ish Plt Count MPV Immature Gran % (Auto) Neut % (Auto) Lymph % (Auto) [place] % (Auto) Eos % (Auto) Baso % (Auto) Neut # (Auto) Lymph # (Auto) Mckean # (Auto) Eos # (Auto) Baso # (Auto) Immature Gran # (Auto) Sodium Potassium Chloride Carbon Dioxide Anion Gap BUN Creatinine Est Cr Clr Drug Dosing Est GFR ( Amer) Est GFR (Non-Af Amer) BUN/Creatinine Ratio Glucose Estimat Average Glucose Hemoglobin A1c Calcium Magnesium Iron TIBC Unsaturated IBC Transferrin % Sat Ferritin Total Creatine Kinase Vitamin B12 227 Folate 10.26 Urine Color Urine Appearance Urine pH Ur Specific [place] Urine Protein Urine Glucose (UA) Urine Ketones Urine Blood Urine Nitrite Urine Bilirubin Urine Urobilinogen Ur Leukocyte Esterase Urine WBC (Auto) Urine RBC (Auto) U Hyaline Cast (Auto) U Epithel Cells (Auto) Urine Bacteria (Auto) Ur Random Creatinine 134.8 U Random Total Protein Anaplasma Smear See Comment Lyme Disease IgG Ab Lyme Disease IgM Ab 09/14/21 09/14/21 14:05 14:05 WBC RBC Hgb Hct MCV MCH MCHC RDW Std Deviation RDW Coeff of Ish Plt Count MPV Immature Gran % (Auto) Neut % (Auto) Lymph % (Auto) [place] % (Auto) Eos % (Auto) Baso % (Auto) Neut # (Auto) Lymph # (Auto) [place]kean # (Auto) Eos # (Auto) Baso # (Auto) Immature Gran # (Auto) Sodium Potassium Chloride Carbon Dioxide Anion Gap BUN Creatinine Est Cr Clr Drug Dosing Est GFR ( Amer) Est GFR (Non-Af Amer) BUN/Creatinine Ratio Glucose Estimat Average Glucose Hemoglobin A1c Calcium Magnesium Iron TIBC Unsaturated IBC Transferrin % Sat Ferritin Total Creatine Kinase Vitamin B12 Folate Urine Color Yellow Urine Appearance Clear Urine pH 6.5 Ur Specific [place] 1.021 Urine Protein Trace H Urine Glucose (UA) 1+ H Urine Ketones Negative Urine Blood 3+ H Urine Nitrite Negative Urine Bilirubin Negative Urine Urobilinogen Negative Ur Leukocyte Esterase Negative Urine WBC (Auto) 1-5 Urine RBC (Auto) 10-30 H U Hyaline Cast (Auto) 0 U Epithel Cells (Auto) 0-5 Urine Bacteria (Auto) Negative Ur Random Creatinine U Random Total Protein 21.6 H Anaplasma Smear Lyme Disease IgG Ab Lyme Disease IgM Ab PG Care Time/CCT Total # of Minutes Spent Total Time Spent with Patient: Total time spent is greater than 50% in coordination of care (as documented) at patient's floor/unit and/or counseling patient: Coding Level of Care Code 85019 Inpt Consult Level 4 Diagnoses Hematuria R31.9 Hematuria type: unspecified type Hypertensive urgency I16.0 Hypokalemia E87.6 (1) Hematuria Hematuria type: unspecified type Qualified Code(s): R31.9 - Hematuria, unspecified
[2021-09-14] MEDS ORDERED: lisinopril 20 MG TAB PO STA (20:42)
[2021-09-14] MEDS: HEPARIN SOD 5,000 UNIT/0.5 ML VIAL SQ SCH (23:31)
[2021-09-15] MEDS: HEPARIN SOD 5,000 UNIT/0.5 ML VIAL SQ SCH ×2 (05:20→14:20)
[2021-09-15] MEDS: ACETAMINOPHEN 500 MG TAB PO SCH ×2 (05:22→14:10)
[2021-09-15] MEDS: hydrALAZINE HCL 20 MG/ML VIAL IV PRN (05:30)
[2021-09-15 07:29] LABS: Hematocrit (blood only) 49.7 % (40.1-51.0); Hemoglobin 16.6 g/dl (14.0-18.0); Mean Corpuscular Hemoglobin 27.6 pg (25.0-34.0); Mean Corpuscular Hgb Conc 33.4 g/dL (32.0-36.0); Mean Corpuscular Volume 82.7 fL (80.0-100.0); Mean Platelet Volume 10.4 fL (9.4-12.4); Platelet Count 255 K/uL (130-400); RDW Coefficient of Variation 14.8 % (11.5-14.5); Red Blood Count 6.01 M/uL (4.63-6.08); White Blood Count 9.53 K/ul (4.8-10.8)
[2021-09-15 07:49] LABS: BUN Creatinine Ratio 13.9 (10-20); Calcium 8.7 mg/dl (8.5-10.1); Creatinine Clr Calc Pharmacy 160.8 ml/min; Est GFR (African American) 123.1 ml/min; Est GFR (Non-African American) 106.2 ml/min; Magnesium 1.9 mg/dl (1.7-2.4); Potassium 3.7 mmol/L (3.5-5.1)
--- NOTE | 2021-09-15 08:25 | Hospitalist Progress Note ---
Date of Service September 15, 2021 Assessment & Plan (1) Hematuria: Plan: 46yo male with a history of HTN presents with a four-day history of dark urine with occasional blood clots, intermittent headaches, and severe hypertension. HEMATURIA RESOLVED --> states urine plaster model and mold maker in color. * NO bacteria on UA but cx pending * Hx 4 days dark urine/clot. Given IVF (ck today checked, low) * CT without evidence for tumor * Urology consulted, signed off and can have outpt f/u for CT urogram, cystoscopy and eval nocturia Discussed with nephrology and will repeat urine studies to assess for blood/protein ?Possible cancel consult pending repeat studies and can discuss case rather than formal consult HYPERTENSION significantly elevated, thankfully without CP/SOB, no headache today reported * patient admitted to having HTN for years and rx for such but stopped really taking them at all as even when taking them his BP remained elevated and he didn't want to be taking something that didn't work. * Given 500cc NSS bolus in ER, labetaolol 10mg IV x 2, hydralazine 10mg x1 and started on nicardipine gtt with improvement in BP to 150s/110s. Additional 2L IVF w/ LR * Additional 20mg IV hydralazine given evening 09/13 * Continued prior rx amlodipine 10mg, metoprolol succinate 100mg daily * Added lisinopril 20mg daily started 09/14 as BP remained elevated to 182/142 and currently 167/115 * Checking Renal artery US to r/o YAMILETH. Cr remains stable Renin, aldosterone levels pending for possible 2nd aldosteronism (hypoK on admit 3.2) ?better benefit with using diuretic therapy such as spironolactone given hepatic steatosis/splenomegaly despite denying etoh use Mild hypokalemia * On admit, K 3.2. Replacement ordered, mag wnl * Repeat wnl * Renin, aldosterone levels pending for 2nd sarah causing HTN * Labs in AM Elevated troponin * Trop 75.7 on admit, no CP or overt EKG changes * Repeat trop 90.9, trended down to 75.4 on repeat but still with elevated pressures (repeat not indicated given delta <20) * ECHO ordered in system, confirmed completed with lead manufacturing engineering tech on 09/13 but not yet read in system --> MONITOR Hepatic steatosis * Incidentally found on CT abdomen/pelvis; unlikely related to presenting symptoms * Outpatient follow-up recommended * Denies etoh use, but will check b12/folate studies for completeness DVT Prophylaxis SCDs, ambulation Will add Heparin SQ while inpatient Continued inpatient stay, possible discharge tomorrow pending above (2) Headache: (3) Hypertension: (4) Hypertensive urgency: (5) Splenomegaly: (6) Elevated troponin: (7) Hepatic steatosis: Plan: noted on imaging, w/ splenomegaly, LFTs wnl. plts acceptable. lyme nega tive/anaplas pending (8) Hypertensive crisis: (9) Demand ischemia: Admission and Anticipated Discharge Date Admission Date: September 12, 2021 Results & Data Results & Data ([facility]) Vital Signs (Past 12 Hours) Vital Signs Temp Pulse Pulse Pulse Pulse Resp BP 09/15/21 07:49 36.4 C L 73 18 153/101 H 09/15/21 06:09 70 09/15/21 00:40 75 09/15/21 05:06 36.5 C 70 18 188/135 H 09/14/21 23:00 64 09/15/21 02:10 77 09/14/21 23:00 36.8 C 82 18 179/122 H 09/14/21 21:34 72 09/14/21 20:54 76 169/112 H BP Pulse Ox Pulse Ox O2 Del Method O2 Del Method 09/15/21 07:49 95 Room Air 09/15/21 06:09 160/79 H 09/15/21 00:40 95 Room Air 09/15/21 05:06 96 Room Air 09/14/21 23:00 09/15/21 02:10 96 Room Air 09/14/21 23:00 96 Room Air 09/14/21 21:34 97 Room Air 09/14/21 20:54 Laboratory Results 09/15/21 09/15/21 09/15/21 Range/Units 06:11 06:11 06:11 WBC 9.53 (4.8-10.8) K/ul RBC 6.01 (4.63-6.08) M/uL Hgb 16.6 (14.0-18.0) g/dl Hct 49.7 (40.1-51.0) % MCV 82.7 (80.0-100.0) fL MCH 27.6 (25.0-34.0) pg MCHC 33.4 (32.0-36.0) g/dL RDW Std Deviation 44.0 (36.4-46.3) fL RDW Coeff of Ish 14.8 H (11.5-14.5) % Plt Count 255 (130-400) K/uL MPV 10.4 (9.4-12.4) fL Sodium 138 (136-145) mmol/L Potassium 3.7 (3.5-5.1) mmol/L Chloride 103 (98-107) mmol/L Carbon Dioxide 28 (21-32) mmol/L Anion Gap 7 (3-11) BUN 11 (6-23) mg/dl Creatinine 0.79 (0.6-1.4) mg/dl Est Cr Clr Drug Dosing 160.8 ml/min Est GFR ( Amer) 123.1 ml/min Est GFR (Non-Af Amer) 106.2 ml/min BUN/Creatinine Ratio 13.9 (10-20) Glucose 125 H (70-99(Fasting)) mg/dl Calcium 8.7 (8.5-10.1) mg/dl Magnesium 1.9 (1.7-2.4) mg/dl Iron (35-175) mcg/dl TIBC (250-450) mcg/dl Unsaturated IBC (155-355) mcg/dl Transferrin % Sat (20-50) % Ferritin (8-388) ng/ml Total Creatine Kinase (30-223) U/L Vitamin B12 (180-914) pg/ml Folate (>5.38) ng/ml TSH 0.943 (0.300-4.500) uIu/ml Urine Color Urine Appearance (Clear) Urine pH (4.5-7.5) Ur Specific [place] (1.000-1.030) Urine Protein (Negative) Urine Glucose (UA) (Negative) Urine Ketones (Negative) Urine Blood (Negative) Urine Nitrite (Negative) Urine Bilirubin (Negative) Urine Urobilinogen (Negative) Ur Leukocyte Esterase (Negative) Urine WBC (Auto) (0-5) /hpf Urine RBC (Auto) (0-4) /hpf U Hyaline Cast (Auto) (0-5) /lpf U Epithel Cells (Auto) (0-5) /lpf Urine Bacteria (Auto) (Negative) Ur Random Creatinine mg/dl U Random Total Protein (0-11.9) mg/dl Anaplasma Smear Lyme Disease IgG Ab (Negative) Lyme Disease IgM Ab (Negative) 09/14/21 09/14/21 09/14/21 Range/Units 14:05 14:05 14:03 WBC (4.8-10.8) K/ul RBC (4.63-6.08) M/uL Hgb (14.0-18.0) g/dl Hct (40.1-51.0) % MCV (80.0-100.0) fL MCH (25.0-34.0) pg MCHC (32.0-36.0) g/dL RDW Std Deviation (36.4-46.3) fL RDW Coeff of Ish (11.5-14.5) % Plt Count (130-400) K/uL MPV (9.4-12.4) fL Sodium (136-145) mmol/L Potassium (3.5-5.1) mmol/L Chloride (98-107) mmol/L Carbon Dioxide (21-32) mmol/L Anion Gap (3-11) BUN (6-23) mg/dl Creatinine (0.6-1.4) mg/dl Est Cr Clr Drug Dosing ml/min Est GFR ( Amer) ml/min Est GFR (Non-Af Amer) ml/min BUN/Creatinine Ratio (10-20) Glucose (70-99(Fasting)) mg/dl Calcium (8.5-10.1) mg/dl Magnesium (1.7-2.4) mg/dl Iron (35-175) mcg/dl TIBC (250-450) mcg/dl Unsaturated IBC (155-355) mcg/dl Transferrin % Sat (20-50) % Ferritin (8-388) ng/ml Total Creatine Kinase (30-223) U/L Vitamin B12 (180-914) pg/ml Folate (>5.38) ng/ml TSH (0.300-4.500) uIu/ml Urine Color Yellow Urine Appearance Clear (Clear) Urine pH 6.5 (4.5-7.5) Ur Specific [place] 1.021 (1.000-1.030) Urine Protein Trace H (Negative) Urine Glucose (UA) 1+ H (Negative) Urine Ketones Negative (Negative) Urine Blood 3+ H (Negative) Urine Nitrite Negative (Negative) Urine Bilirubin Negative (Negative) Urine Urobilinogen Negative (Negative) Ur Leukocyte Esterase Negative (Negative) Urine WBC (Auto) 1-5 (0-5) /hpf Urine RBC (Auto) 10-30 H (0-4) /hpf U Hyaline Cast (Auto) 0 (0-5) /lpf U Epithel Cells (Auto) 0-5 (0-5) /lpf Urine Bacteria (Auto) Negative (Negative) Ur Random Creatinine 134.8 mg/dl U Random Total Protein 21.6 H (0-11.9) mg/dl Anaplasma Smear Lyme Disease IgG Ab (Negative) Lyme Disease IgM Ab (Negative) 09/14/21 09/14/21 09/14/21 Range/Units 13:16 11:02 11:02 WBC (4.8-10.8) K/ul RBC (4.63-6.08) M/uL Hgb (14.0-18.0) g/dl Hct (40.1-51.0) % MCV (80.0-100.0) fL MCH (25.0-34.0) pg MCHC (32.0-36.0) g/dL RDW Std Deviation (36.4-46.3) fL RDW Coeff of Ish (11.5-14.5) % Plt Count (130-400) K/uL MPV (9.4-12.4) fL Sodium (136-145) mmol/L Potassium (3.5-5.1) mmol/L Chloride (98-107) mmol/L Carbon Dioxide (21-32) mmol/L Anion Gap (3-11) BUN (6-23) mg/dl Creatinine (0.6-1.4) mg/dl Est Cr Clr Drug Dosing ml/min Est GFR ( Amer) ml/min Est GFR (Non-Af Amer) ml/min BUN/Creatinine Ratio (10-20) Glucose (70-99(Fasting)) mg/dl Calcium (8.5-10.1) mg/dl Magnesium (1.7-2.4) mg/dl Iron (35-175) mcg/dl TIBC (250-450) mcg/dl Unsaturated IBC (155-355) mcg/dl Transferrin % Sat (20-50) % Ferritin (8-388) ng/ml Total Creatine Kinase (30-223) U/L Vitamin B12 227 (180-914) pg/ml Folate 10.26 (>5.38) ng/ml TSH (0.300-4.500) uIu/ml Urine Color Urine Appearance (Clear) Urine pH (4.5-7.5) Ur Specific [place] (1.000-1.030) Urine Protein (Negative) Urine Glucose (UA) (Negative) Urine Ketones (Negative) Urine Blood (Negative) Urine Nitrite (Negative) Urine Bilirubin (Negative) Urine Urobilinogen (Negative) Ur Leukocyte Esterase (Negative) Urine WBC (Auto) (0-5) /hpf Urine RBC (Auto) (0-4) /hpf U Hyaline Cast (Auto) (0-5) /lpf U Epithel Cells (Auto) (0-5) /lpf Urine Bacteria (Auto) (Negative) Ur Random Creatinine mg/dl U Random Total Protein (0-11.9) mg/dl Anaplasma Smear See Comment Lyme Disease IgG Ab Negative (Negative) Lyme Disease IgM Ab Negative (Negative) 09/14/21 09/14/21 09/14/21 Range/Units 07:48 07:48 07:48 WBC (4.8-10.8) K/ul RBC (4.63-6.08) M/uL Hgb (14.0-18.0) g/dl Hct (40.1-51.0) % MCV (80.0-100.0) fL MCH (25.0-34.0) pg MCHC (32.0-36.0) g/dL RDW Std Deviation (36.4-46.3) fL RDW Coeff of Ish (11.5-14.5) % Plt Count (130-400) K/uL MPV (9.4-12.4) fL Sodium 139 (136-145) mmol/L Potassium 3.9 (3.5-5.1) mmol/L Chloride 104 (98-107) mmol/L Carbon Dioxide 30 (21-32) mmol/L Anion Gap 5 (3-11) BUN 12 (6-23) mg/dl Creatinine 0.84 (0.6-1.4) mg/dl Est Cr Clr Drug Dosing 152.0 ml/min Est GFR ( Amer) 120.0 ml/min Est GFR (Non-Af Amer) 103.5 ml/min BUN/Creatinine Ratio 14.3 (10-20) Glucose 142 H (70-99(Fasting)) mg/dl Calcium 8.7 (8.5-10.1) mg/dl Magnesium 1.9 (1.7-2.4) mg/dl Iron 64 (35-175) mcg/dl TIBC 352 (250-450) mcg/dl Unsaturated IBC 288 (155-355) mcg/dl Transferrin % Sat 18 L (20-50) % Ferritin 56.0 (8-388) ng/ml Total Creatine Kinase 23 L (30-223) U/L Vitamin B12 (180-914) pg/ml Folate (>5.38) ng/ml TSH (0.300-4.500) uIu/ml Urine Color Urine Appearance (Clear) Urine pH (4.5-7.5) Ur Specific [place] (1.000-1.030) Urine Protein (Negative) Urine Glucose (UA) (Negative) Urine Ketones (Negative) Urine Blood (Negative) Urine Nitrite (Negative) Urine Bilirubin (Negative) Urine Urobilinogen (Negative) Ur Leukocyte Esterase (Negative) Urine WBC (Auto) (0-5) /hpf Urine RBC (Auto) (0-4) /hpf U Hyaline Cast (Auto) (0-5) /lpf U Epithel Cells (Auto) (0-5) /lpf Urine Bacteria (Auto) (Negative) Ur Random Creatinine mg/dl U Random Total Protein (0-11.9) mg/dl Anaplasma Smear Lyme Disease IgG Ab (Negative) Lyme Disease IgM Ab (Negative) PG Care Time/CCT Total # of Minutes Spent Total Time Spent with Patient: Total time spent is greater than 50% in coordination of care (as documented) at patient's floor/unit and/or counseling patient: Coding Diagnoses Hematuria R31.9 Hematuria type: unspecified type Headache R51.9 Headache chronicity pattern: unspecified pattern Headache type: unspecified Intractability: not intractable Hypertension I10 Hypertensive urgency I16.0 Splenomegaly R16.1 Elevated troponin R77.8 Hepatic steatosis K76.0 Hypertensive crisis I16.9 Demand ischemia I24.8 (1) Hematuria Hematuria type: unspecified type Qualified Code(s): R31.9 - Hematuria, unspecified (2) Headache Headache chronicity pattern: unspecified pattern Headache type: unspecified Intractability: not intractable Qualified Code(s): R51.9 - Headache, unspecified
[2021-09-15] MEDS: amLODIPine BESYLATE 5 MG TAB PO SCH (08:54)
[2021-09-15] MEDS: METOPROLOL SUCC 50MG EXT REL TAB PO SCH (08:54)
[2021-09-15] MEDS ORDERED: CYANOCOBALAMIN (B-12) 500 MCG TABLET PO SCH (09:00)
[2021-09-15] MEDS ORDERED: lisinopril 40 MG TAB PO SCH (09:00)
--- NOTE | 2021-09-15 09:39 | Nephrology Progress Note ---
Date of Service September 15, 2021 Assessment & Plan (1) Hematuria: Plan: Suspected non-glomerular etiology. Will require close follow up and outpatient urologic evaluation. No additional symptoms reported. (2) Hypertensive urgency: Plan: Renin and aldosterone level pending. CT did not demonstrate any concerning adrenal lesions. Duplex did not demonstrate YAMILETH. Continue lisinopril 40 mg daily. Low sodium diet. Consider addition of a thiazide diuretic +/1 low dose Aldactone if elevated BP persists. If BP improves with current therapy, I would consider Gavino stable for discharge from a nephrology standpoint. We have discussed the importance of close outpatient follow up and he expressed understanding. I will arrange follow up with me in the nephrology clinic within 2 weeks of discharge. (3) Hypokalemia: Plan: Resolved with replacement and added therapy. No prior history. Possible aldosteronism. Renin and sarah pending. Encourage high potassium and low sodium diet. Admission and Anticipated Discharge Date Admission Date: September 12, 2021 Subjective No acute events overnight. Gavino reports feeling well this morning. He hopes to be discharged home today, if BP acceptable. Denies headache. Review of Systems Review of Systems: All systems reviewed & are unremarkable except as noted in HPI & below Physical Exam Constitutional: well developed; no acute distress Eyes: no scleral abnormality and no corneal abnormality Neck: normal visual inspection and trachea midline Respiratory: normal respiratory effort Auscultation: lungs clear to auscultation bilaterally Cardiovascular: Rate/Rhythm: regular rate Heart Sounds: normal S1 and normal S2 Extremities: no edema Musculoskeletal: Extremities: no cyanosis and no clubbing Skin: normal turgor; no lesions Neurologic: Motor/Sensory: no tremor and no asterixis Psychiatric: Orientation: alert and oriented x 3 Results & Data ([facility]) Vital Signs (Past 12 Hours) Vital Signs Temp Pulse Pulse Pulse Resp BP BP 09/15/21 07:49 36.4 C L 73 18 153/101 H 09/15/21 06:09 70 160/79 H 09/15/21 00:40 75 09/15/21 05:06 36.5 C 70 18 188/135 H 09/14/21 23:00 64 09/15/21 02:10 77 09/14/21 23:00 36.8 C 82 18 179/122 H Pulse Ox Pulse Ox O2 Del Method O2 Del Method 09/15/21 07:49 95 Room Air 09/15/21 06:09 09/15/21 00:40 95 Room Air 09/15/21 05:06 96 Room Air 09/14/21 23:00 09/15/21 02:10 96 Room Air 09/14/21 23:00 96 Room Air Laboratory Results Laboratory Results - last 24 hr 09/14/21 09/14/21 09/14/21 07:48 07:48 11:02 WBC RBC Hgb Hct MCV MCH MCHC RDW Std Deviation RDW Coeff of Ish Plt Count MPV Sodium Potassium Chloride Carbon Dioxide Anion Gap BUN Creatinine Est Cr Clr Drug Dosing Est GFR ( Amer) Est GFR (Non-Af Amer) BUN/Creatinine Ratio Glucose Calcium Magnesium Iron 64 TIBC 352 Unsaturated IBC 288 Transferrin % Sat 18 L Ferritin 56.0 Total Creatine Kinase 23 L Vitamin B12 Folate TSH Urine Color Urine Appearance Urine pH Ur Specific [place] Urine Protein Urine Glucose (UA) Urine Ketones Urine Blood Urine Nitrite Urine Bilirubin Urine Urobilinogen Ur Leukocyte Esterase Urine WBC (Auto) Urine RBC (Auto) U Hyaline Cast (Auto) U Epithel Cells (Auto) Urine Bacteria (Auto) Ur Random Creatinine U Random Total Protein Anaplasma Smear Lyme Disease IgG Ab Negative Lyme Disease IgM Ab Negative 09/14/21 09/14/21 09/14/21 11:02 13:16 14:03 WBC RBC Hgb Hct MCV MCH MCHC RDW Std Deviation RDW Coeff of Ish Plt Count MPV Sodium Potassium Chloride Carbon Dioxide Anion Gap BUN Creatinine Est Cr Clr Drug Dosing Est GFR ( Amer) Est GFR (Non-Af Amer) BUN/Creatinine Ratio Glucose Calcium Magnesium Iron TIBC Unsaturated IBC Transferrin % Sat Ferritin Total Creatine Kinase Vitamin B12 227 Folate 10.26 TSH Urine Color Urine Appearance Urine pH Ur Specific [place] Urine Protein Urine Glucose (UA) Urine Ketones Urine Blood Urine Nitrite Urine Bilirubin Urine Urobilinogen Ur Leukocyte Esterase Urine WBC (Auto) Urine RBC (Auto) U Hyaline Cast (Auto) U Epithel Cells (Auto) Urine Bacteria (Auto) Ur Random Creatinine 134.8 U Random Total Protein Anaplasma Smear See Comment Lyme Disease IgG Ab Lyme Disease IgM Ab 09/14/21 09/14/21 09/15/21 14:05 14:05 06:11 WBC RBC Hgb Hct MCV MCH MCHC RDW Std Deviation RDW Coeff of Ish Plt Count MPV Sodium Potassium Chloride Carbon Dioxide Anion Gap BUN Creatinine Est Cr Clr Drug Dosing Est GFR ( Amer) Est GFR (Non-Af Amer) BUN/Creatinine Ratio Glucose Calcium Magnesium Iron TIBC Unsaturated IBC Transferrin % Sat Ferritin Total Creatine Kinase Vitamin B12 Folate TSH 0.943 Urine Color Yellow Urine Appearance Clear Urine pH 6.5 Ur Specific [place] 1.021 Urine Protein Trace H Urine Glucose (UA) 1+ H Urine Ketones Negative Urine Blood 3+ H Urine Nitrite Negative Urine Bilirubin Negative Urine Urobilinogen Negative Ur Leukocyte Esterase Negative Urine WBC (Auto) 1-5 Urine RBC (Auto) 10-30 H U Hyaline Cast (Auto) 0 U Epithel Cells (Auto) 0-5 Urine Bacteria (Auto) Negative Ur Random Creatinine U Random Total Protein 21.6 H Anaplasma Smear Lyme Disease IgG Ab Lyme Disease IgM Ab 09/15/21 09/15/21 06:11 06:11 WBC 9.53 RBC 6.01 Hgb 16.6 Hct 49.7 MCV 82.7 MCH 27.6 MCHC 33.4 RDW Std Deviation 44.0 RDW Coeff of Ish 14.8 H Plt Count 255 MPV 10.4 Sodium 138 Potassium 3.7 Chloride 103 Carbon Dioxide 28 Anion Gap 7 BUN 11 Creatinine 0.79 Est Cr Clr Drug Dosing 160.8 Est GFR ( Amer) 123.1 Est GFR (Non-Af Amer) 106.2 BUN/Creatinine Ratio 13.9 Glucose 125 H Calcium 8.7 Magnesium 1.9 Iron TIBC Unsaturated IBC Transferrin % Sat Ferritin Total Creatine Kinase Vitamin B12 Folate TSH Urine Color Urine Appearance Urine pH Ur Specific [place] Urine Protein Urine Glucose (UA) Urine Ketones Urine Blood Urine Nitrite Urine Bilirubin Urine Urobilinogen Ur Leukocyte Esterase Urine WBC (Auto) Urine RBC (Auto) U Hyaline Cast (Auto) U Epithel Cells (Auto) Urine Bacteria (Auto) Ur Random Creatinine U Random Total Protein Anaplasma Smear Lyme Disease IgG Ab Lyme Disease IgM Ab PG Care Time/CCT Total # of Minutes Spent Total Time Spent with Patient: Total time spent is greater than 50% in coordination of care (as documented) at patient's floor/unit and/or counseling patient: Coding Level of Care Code 55265 Subseq Hosp Care Lvl 3 Diagnoses Hematuria R31.9 Hematuria type: unspecified type Hypertensive urgency I16.0 Hypokalemia E87.6 (1) Hematuria Hematuria type: unspecified type Qualified Code(s): R31.9 - Hematuria, unspecified
--- NOTE | 2021-09-15 11:16 | Discharge Summary ---
Date of Service September 15, 2021 Admission HPI Per Admitting Provider 46yo male with a history of HTN presents with a four-day history of dark urine with occasional blood clots, intermittent headaches, and severe hypertension. Also reports several hours of left testicle pain yesterday which came and went without clear trigger, but resolved and is not present today. Patient's headache has been on and off for the past four days with moderate pain improved with tylenol. However, this morning, patient had a severe headache behind his left eye, rated an 8/10, which did improve with tylenol. Patient monitors his BP from home and notes his normal BP is around 130/80s; BP has been elevated over the past few days but patient reports the highest SBP he saw was in the 160s. Patient denies pain with urination, urinary hesitancy, and urinary urgency. Does note some increased urinary frequency but attributes this to increased fluid intake since he first noticed dark-tinged urine. Denies changes in vision, CP, SOB, fever, abdominal pain, nausea, vomiting, diarrhea, lightheadedness, dizzin ess, numbness, tingling, weakness, or other symptoms. Patient is a never-smoker and has no known occupational carcinogen exposure. Patient reports a family history of HTN and a family history of prostate cancer (grandfather, diagnosed at age 63). In the ED, patient was hypertensive to the 200-240s/120-170s. Vitals were otherwise stable. Labs notable for hypokalemia to 3.2, elevated hsTroponin to 75.7 UA notable for 3+ blood, 2+ protein, and trace leuk esterase EKG: NSR with some nonspecific T-wave abnormalities CTA head: no hemorrhage or evidence of acute territorial ischemia; scattered hypoattenuating foci throughout the white matter likely representing age-related microangiopathic change CT abdomen/pelvis: decompressed bladder with circumferential wall thickening, mild hepatic steatosis, splenomegaly, mild sacroiliac joint degenerative change, posterior disc osteophyte complex at L5-S1, no renal calculi identified US scrotum: trace bilateral hydroceles but overall unremarkable sonographic examination of the testes In the ED, patient was given NSS 500mL bolus x1, labetalol 10mg IV x2, hydralazine 10mg IV x1, and was then started on a nicardipine drip. Patient was additionally given KCl 40mEq PO x1. Admission Exam Per Admitting Provider Constitutional: well-appearing, no acute distress HEENT: NCAT, no conjunctival injection, MMM CV: regular rhythm, no murmur appreciated, extremities well-perfused, 1+ pitting edema of the LE bilaterally up to the knee Resp: CTABL, no wheezes/rales/rhonchi appreciated, no increased work of breath ing GI: soft, nondistended, nontender, BS normoactive MSK: no gross deformities appreciated, no flank tenderness Skin: warm, dry, no rash appreciated Neuro: alert, oriented, CN2-12 grossly intact, strength 5/5 in upper and lower extremities bilaterally, efqbff-yp-napu testing unremarkable, no focal neurologic deficit appreciated Principal Diagnosis Hypertensive Emergency, Hematuria, Headache Discharge Exam General: WD/WN morbidly obese male sitting up in bed, NAD, demanding to be discharrged today, upset about sleep study results HEENT: eyes anicteric, pupils equal and reactive, trachea midline without deviation, +thick neck Resp: CTAB, diminished in the bases, no w/c, on room air CV: RRR, no m/r/g, no pitting edema or calf tenderness GI: +BS, obese, nontender MSK/Neuro: moves all extremities, strength equal throughout, no focal deficit Psych: AOx3, cooperative Skin: warm, dry Discharge Data Allergies Allergy/AdvReac Type Severity Reaction Status Date / Time walnut Allergy Difficulty Verified 09/12/21 22:39 Breathing Consultations 09/12/21 19:26 ED Decision to Admit Stat 09/13/21 07:56 Consult Urology Routine 09/14/21 12:48 Consult Nephrology Routine Ordered Studies Abdomen/Pelvis CT 09/12/21 14:25 CT SCAN OF THE ABDOMEN AND PELVIS WITHOUT IV CONTRAST CLINICAL HISTORY: Hematuria. COMPARISON STUDY: No priors. TECHNIQUE: CT scan of the abdomen and pelvis is performed from the lung bases to the proximal femora. Images are reviewed in the axial, sagittal, and coronal planes. IV contrast was not administered for this examination. A dose lowering technique was utilized adhering to the principles of ALARA. CT DOSE: 1638.60 mGy.cm FINDINGS: Lung bases: The heart is normal in size and without pericardial effusion. There are small bilateral fat-containing Bochdalek hernias. The lung bases are clear. There is a small hiatal hernia. Liver: The unenhanced liver is top normal in size and demonstrates diffusely diminished attenuation indicating steatosis. Fatty sparing is seen adjacent to gallbladder fossa. There is no intrahepatic biliary ductal dilatation. Gallbladder: Unremarkable. Spleen: The spleen is enlarged measuring 15.6 cm in length. A 2.7 cm peripherally calcified cyst is noted in the anterior spleen. Pancreas: Unremarkable. Adrenal glands: Unremarkable. Kidneys: The unenhanced kidneys are normal in size and without hydronephrosis. There are no renal calculi identified. There is no evidence of contour deforming renal mass lesion. Abdominal vasculature: The abdominal aorta is normal in course and caliber. Bowel: There is no bowel obstruction. Mild fecal retention is seen throughout the colon. The appendix is well-visualized and normal. Peritoneum: There is no intraperitoneal free air or abdominal ascites. There is a small fat-containing umbilical hernia. Lymphadenopathy: None. Pelvic viscera: The bladder is decompressed and appears circumferentially thick walled. The prostate and seminal vesicles are normal as visualized. Skeletal structures: No lytic or blastic lesions are seen. Mild degenerative change is noted in the sacroiliac joints. There is a posterior disc osteophyte complex at L5-S1. IMPRESSION: 1. The bladder is decompressed and appears circumferentially thick walled. Correlate with clinical findings and urinalysis. 2. Mild hepatic steatosis. 3. Splenomegaly. 4. No renal calculi are identified. 5. Additional findings as above. Noted in the sacroiliac joints. ACT 112: Negative or not required by law. Electronically signed by: Zacarias Pike M.D. 09/12/2021 3:53 PM Scrotum Ultrasound 09/12/21 14:26 ULTRASOUND TESTES AND SCROTUM CLINICAL HISTORY: Left testicular pain COMPARISON STUDY: No priors. TECHNIQUE: Real-time, grayscale, and color Doppler sonography of the testes and scrotum is performed. Images are reviewed in the transverse and longitudinal planes. FINDINGS: The testes are normal in size and homogeneous in echotexture. The right testis measures 3.9 x 2.2 x 2.7 cm and the left testis measures 4.0 x 2.1 x 2.9 cm. A tiny calcification of the tunica is incidentally noted on the right. No intratesticular mass is seen. Testicular blood flow is normal and symmetric. Normal Doppler waveforms are identified in both testes. The epididymal heads are normal in appearance. The right epididymal head measures 1.3 cm in length and the left epididymal head measures 1.1 cm in length. There are trace bilateral hydroceles. No varicocele is seen. IMPRESSION: 1. Unremarkable sonographic examination of the testes. 2. Trace bilateral hydroceles. ACT 112: Negative or not required by law. Electronically signed by: Zacarias Pike M.D. 09/12/2021 5:18 PM Head CTA 09/12/21 16:45 CT ANGIOGRAM OF THE BRAIN COMBO CLINICAL HISTORY: Headache COMPARISON STUDY: No priors. TECHNIQUE: Unenhanced axial CT scan of the brain is performed. Subsequently, following the IV administration of 118 cc of Optiray 320, CT angiogram of the brain was performed from the skull base to the vertex. Images are reviewed in the axial, sagittal, and coronal planes. 3-D MIPS images are created and assessed. IV contrast was administered without complication. A dose lowering technique was utilized adhering to the principles of ALARA. CT DOSE: 673.96 mGy.cm FINDINGS: Brain parenchyma: Scattered hypoattenuating foci throughout the white matter likely represent microangiopathic change. There is no hemorrhage, mass effect, or evidence of acute territorial ischemia by CT criteria. There is no evidence of enhancing mass lesion on the angiogram phase images. No extra-axial fluid collection is seen. [place]-white matter differentiation is preserved. Ventricles, sulci, and cisterns: Normal in configuration. CT angiogram of the brain: [place] is developmentally complete. The internal carotid arteries are widely patent, as are the anterior and middle cerebral arteries. The vertebrobasilar system and posterior cerebral arteries are widely patent. The left vertebral artery is dominant. The right vertebral artery is diminutive. There is no aneurysm, high-grade stenosis, or focal vessel cutoff identified throughout the intracranial circulation. Dural sinuses: Clear as visualized. Orbits: The bony orbits are intact. The orbital contents are normal as visualized. Sinuses and mastoids: There is subtotal opacification of the right sphenoid sinus which may represent a large retention cyst. A 1.5 cm retention cyst is noted in the left maxillary antrum. There is trace mucosal thickening in the right maxillary sinus. The mastoid air cells are well pneumatized. Calvarium: Unremarkable. IMPRESSION: 1 There is no hemorrhage, mass effect, or evidence of acute territorial ischemia by CT criteria. 2. Scattered hypoattenuating foci throughout the white matter likely represent age advanced microangiopathic change. Clinical correlation will be required. 3. Unremarkable CT angiogram of the brain. ACT 112: Negative or not required by law. Electronically signed by: Zacarias Pike M.D. 09/12/2021 5:16 PM Chest X-Ray 09/12/21 20:19 SINGLE VIEW CHEST CLINICAL HISTORY: Hypertension. FINDINGS: An AP, portable, upright chest radiograph is obtained. No prior studies are available for comparison at the time of dictation. The cardiomediastinal silhouette is top normal for projection. The lungs and pleural spaces are clear. No pneumothorax is seen. The bony thorax is grossly intact. IMPRESSION: No active disease in the chest. ACT 112: Negative or not required by law. Electronically signed by: Zacarias Pike M.D. 09/12/2021 9:07 PM Renal Artery Duplex 09/14/21 11:25 US duplex renal artery CLINICAL HISTORY: Hypertension. Evaluate for renal artery stenosis. COMPARISON STUDY: CT of the abdomen and pelvis September 12, 2021. TECHNIQUE: Color and duplex Doppler sonography of the abdominal aorta and renal arteries was performed. FINDINGS: Peak systolic velocity within the abdominal aorta was 93 cm a second. Bilateral renal arteries and veins were patent. Peak systolic velocity within the right renal artery was 117 cm/s. Systolic waveforms within the segmental vessels of the right kidney were normal. Peak systolic velocity within the left renal artery was 65 cm/s. Exam is mildly compromised by suboptimal penetration however the bilateral renal arteries were visualized. Segmental vessels within the left kidney demonstrated normal waveforms. IMPRESSION: Exam mildly compromised by suboptimal penetration but no sonographic evidence for renal artery stenosis. ACT 112: Negative or not required by law. Electronically signed by: Bradley Bedolla M.D. 09/14/2021 3:54 PM Hospital Course (1) Hematuria: 46yo male with a history of HTN presented with a four-day history of dark urine with occasional blood clots, intermittent headaches, and severe hypertension. 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 however did still have RBC on UA, although decreased CTAP w/o evidence for tumor however was without contrast Urology consulted -- signed off as hematuria resolved inpatient/hgb stable and plans for f/u outpatient for CT urogram, cystoscopy and further evaluation of hematuria (2) Hypertensive urgency: significantly elevated, thankfully without CP/SOB but did have mild headache and elevated troponin on admit, likely demand from accelerated HTN (reported 230s/169 during inpatient stay) patient admitted to having HTN for years and rx for such but stopped really taking them at all as even when taking them his BP remained elevated and he didn't want to be taking something that didn't work. Given 500cc NSS bolus in ER, labetaolol 10mg IV x 2, hydralazine 10mg x1 and started on nicardipine gtt with improvement in BP to 150s/110s. Additional 2L IVF w/ LR Additional 20mg IV hydralazine given evening 09/13, 10mg IV available as needed Prior rx amlodipine 10mg, metoprolol succinate 100mg continued and sent new rx and encouraged compliance Renal US without YAMILETH Nephrology consulted given proteinuria as well -- prior day started lisinopril 20mg , added extra 20mg HS and increased daily to 40mg Renin, aldosterone levels pending at d/c for possible 2ndary aldosteronism (K on admit 3.2) BPs improved, 164/106 prior to d/c and expect taking some time for lisinopril full effect ECHO w/ normal EF, borderline concentric LVH --> Continued BP control No CP/SOB reported, mild headache. CT head NEGATIVE, microvascular changes. 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 CM arranged. Will need formal outpatient sleep study to determine degree of sleep apnea/CPAP moving forward. (3) Hypertension: improved as above rec adherence to meds at d/c, follow up PCP/nephrology/urology, chewing tobacco cessation and treatment of underlying sleep apnea based on nocturnal pulse oximetry (4) Headache: on admit, 2nd to HTN CT head negative BP control with improvement of PIERRE but still mild frontal after finding out about sleep study (denied PIERRE to me 09/14 but had in days prior) Tylenol prn (5) Elevated troponin: Trop 75.7 on admit, no CP or overt EKG changes. Demand from HTN Repeat trop 90.9, trended down to 75.4 on repeat but still with elevated pressures (repeat not indicated given delta <20) ECHO with normal LV systolic function, EF 55-60%. No regional wma. Borderline concentric LVH. No CP/SOB (6) Hepatic steatosis: noted on imaging, w/ splenomegaly, LFTs wnl. plts acceptable. lyme negative/anaplasmosis without evidence Incidentally found on CT abdomen/pelvis; unlikely related to presenting symptoms Outpatient follow-up recommended Denied etoh use, but checked b12/folate studies for completeness B12 borderline low and rec daily PO at d/c to prevent deficiency (7) Splenomegaly: incidentally noted, no recent viral illness but no enlarged lymph nodes plt count normal 255 outpt f//u (8) Hypertensive crisis: Elevated troponin * Trop 75.7 on admit, no CP or overt EKG changes * Repeat trop 90.9, trended down to 75.4 on repeat but still with elevated pressures (repeat not indicated given delta <20) * ECHO with normal LV systolic function, EF 55-60%. No regional wma. Borderline concentric LVH. (9) Demand ischemia: 2nd to HTN ECHO w/o WMA BP control as outlined, outpt f/u (10) Hypokalemia: On admit, K 3.2. Replacement ordered, mag wnl * Renin, aldosterone levels pending for 2nd sarah causing HTN * Remained stable on repeat and also on lisinopril, increased as above Plan DVT proph -- ambulation, heparin sq added while inpatient Total Time Total Time Spent Total Time Spent (In Minutes): 60 Discharge Plan Discharge Items Patient Disposition: Home - Self-Care Reason For Visit: SEVERE HTN, HEMATURIA, PIERRE Discharge Diagnosis: Hypertensive Emergency, Hematuria Condition on Discharge: Good Goals: You have been hospitalized for an acute medical problem. During your stay at [facility], we have made an effort to correct the problem that brought you to the hospital while keeping you as comfortable as possible. Medications were used to bring your condition under control and your discharge instructions will include directions for any medications you should take after leaving the hospital. Please make sure you see your Primary Care Provider as part of your follow up plan. Activity: Resume your previous activity Non-emergency contact: Primary Care Provider Call non-emergency contact if: you have any medication questions, your symptoms worsen and your pain is not controlled Follow-up/Referrals: Sergio Ruiz DO [Physician] - (2 weeks) Caio Abbasi MD [Outside Practitioners] - Chi Chowdhury MD [Physician] - (1 month) PCP,NO [Primary Care Provider] - Diet: Heart Healthy Addtl Attending Provider Instructions: You have been hospitalized for elevated blood pressure, headache, and blood in the urine. Blood in the urine has resolved. You will need follow up with Urology in next month and they should be calling to set you up an appointment. Please call sooner to Dr Chowdhury's office if symptoms return sooner. Their number is [phone]. Your troponin level (enzyme to measure heart damage) was elevated, likely from long standing high blood pressure. Additional medication was added, lisinopril and consultation with nephrology Dr Ruiz, increased this to 40mg daily to help prevent elevated pressures and you should continue to monitor at home as these take some time for full effect. Dr Ruiz would also like to see you in follow up in approximately 2 weeks. Please continue to monitor your blood pressures at home and if the diastolic number (bottom) is persistently greater than 90 you should likely have addition of medication like Aldactone or hydrochlorothiazide as discussed by Dr Ruiz. Please call his office if remains elevated and he will call in medication prior to visit. Your kidney number has remained stable and labs for aldosterone and renin have been sent and are pending at discharge as this can be a cause of elevated blood pressure and will need follow up/additional medications if they show abnormal ity. ECHO (ultrasound of your heart) did not show any wall motion abnormalities which would indicate heart attack. It did show some thickening of the ventricle which is likely from high blood pressure. Your lipid panel and diabetes numbers were acceptable. It is recommended to stop chewing tobacco as this increases your risk as well. You have also been empirically tested for sleep apnea and initial testing does show need for supplemental oxygen at night with the recommendations for a formal sleep study as an outpatient to reveal level of sleep apnea. Untreated sleep apnea can cause daytime sleepiness, falling asleep at the wheel, elevated blood pressures, pulmonary hypertension among other risk factors and ideally should be treated. 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 You should follow up with your PCP in the next 7-10 days to monitor your progress after discharge. Please return to the ER with any worsening chest pain, shortness of breath, bleeding, worse headache/visual changes, or for any other symptoms concerning for you. Take care! Pending Studies at Discharge: Yes Studies:: Renin, Aldosterone Stand-Alone Forms: My [facility] PressConnect, Work/School Release, Smoking Cessation Medications and DC Order Prescriptions: New cyanocobalamin (vitamin B-12) 500 mcg Tablet 500 mcg PO QAM Qty: 30 0RF lisinopril [Zestril] 40 mg Tablet 40 mg PO QAM Qty: 30 0RF Continued metoprolol succinate 100 mg tablet extended release 24 hr 100 mg PO DAILY Qty: 30 0RF amlodipine 10 mg tablet 10 mg PO DAILY Qty: 30 0RF Discharge Orders: Discharge Order (Routine); Ordered 09/15/21 Ordered By: Crissy Carrasco Admission Data Admit Date/Time: 09/12/21 22:08 Attending Provider: Kristin Beckett Admit Provider: Steffen Buchanan Primary Care Provider: PCP,NO Other Providers: Antolin Cam ; Chi Chowdhury ; Sergio Ruiz. Other Interventions: Discharge Summary Assessment (RN) Last Done: 09/15/21 12:04 Supervising Physician Co-Signing Physician Notes PA Supervision Note: I personally saw and examined the patient. I verified all cowan points and agree with JIMENEZ Carrasco with the following exceptions and/or additions: S-Pt feleing well, has no complaints, no PIERRE, CP, SOB. Is eating and drinking, no nausea or abd pain. O- Vitals reviewed Gen: [AAOx3, NAD, obese] HEENT: [anicteric sclerae, EOMI] CV: [RRR no mgr nl S1S2] Pulm: [CTAB no wcr] Abd: [+BS soft NT ND no masses or hernias] Ext: [no edema] Skin: [no rashes, warm/dry] Neuro: [full strength throughout] A/P-46 yo male here with hypertensive energency, now resolved Restarting antihypertensive treatment regimen as above Stable for dc to home Needs outpt sleep study Coding Level of Care Code D/C DAY MANAGEMENT >30 MINS Diagnoses Hematuria R31.9 Hematuria type: unspecified type Hypertensive urgency I16.0 Hypertension I10 Headache R51.9 Headache chronicity pattern: unspecified pattern Headache type: unspecified Intractability: not intractable Elevated troponin R77.8 Hepatic steatosis K76.0 Splenomegaly R16.1 Hypertensive crisis I16.9 Demand ischemia I24.8 Hypokalemia E87.6
[2021-09-19 14:51] LABS: Renin Activity 1.45 ng/mL/h (0.25-5.82)
== END 2021-09-15 16:08 | disposition home or self-care (01) | DRG 305 ==
LOC: ED 14:01 → 2S 22:08 → SUATTDRO 22:08 → 2S 22:57